=== PATIENT | female | born 1985 | race Caucasian/White ===

== ENCOUNTER 2016-08-17 03:10 | Observation (INO) | payer OTHER ==
[~2016-08-17] VITALS: Ht 170.2 cm; Wt 119.4 kg
[2016-08-17] VITALS (8 sets, daily range): BP systolic 118–137; BP diastolic 75–88; PULSE 67–106; TEMP 36.6–37.6; O2SAT 91–96; Ht 170.2 cm; Wt 119.4 kg
[2016-08-17] MEDS ORDERED: ONDANSETRON INJ 2 MG/ML 2 ML VIAL IV STA (03:27)
[2016-08-17] MEDS ORDERED: SODIUM CHLORIDE 0.9% 1000ML 1,000 ML IV STA (03:27)
[2016-08-17 04:14] LABS: BASO % 0.1 %; BASO ABS # 0.01 K/uL (0-0.2); COMPLETE YES; EOS % 3.2 %; HEMATOCRIT 33.5 % (37-47); IG% 0.4 %; LYMPH % 25.9 %; LYMPH ABS # 2.53 K/uL (1.2-3.4); MEAN CORPUSCULAR HEMOGLOBIN 29.4 pg (25-34); MEAN CORPUSCULAR HGB CONC 34.6 g/dl (32-36); MEAN PLATELET VOLUME 10.8 fL (7.4-10.4); MONO % 6.9 %; NEUT % 63.5 %; PLATELET COUNT 164 K/uL (130-400); RED BLOOD COUNT 3.94 M/uL (4.2-5.4); WHITE BLOOD COUNT 9.75 K/uL (4.8-10.8)
[2016-08-17 04:34] LABS: BUN/CREATININE RATIO 16.2 (10-20); CALCIUM 8.8 mg/dl (8.5-10.1); CREATININE 0.86 mg/dl (0.60-1.20); POTASSIUM 3.9 mmol/L (3.5-5.1)
[2016-08-17 04:36] LABS: ALB/GLOB RATIO 1.2 (0.9-2)
--- NOTE | 2016-08-17 04:58 | EMERGENCY ROOM VISIT NOTE ---
History First contact with patient: 03:20 Chief Complaint: ABDOMINAL PAIN Stated Complaint: PAIN UPPER RT ABD Nursing Triage Summary: see triage note History of Present Illness The patient is a 30 year old female who presents to the Emergency Room with complaints of right upper quadrant pain which began approximately 4 hours ago. The patient states that she has been told by her primary care provider that she is having gallbladder attacks. She states she has had 3 episodes of pain this week. The pain is located in the right upper abdomen and is associated with nausea. She has not had vomiting. She has been told before that she has gallstones. She states she has an appointment with Dr. Calles next week regarding this. She rates her discomfort an 8/10. She has not taken any medication for pain. She denies history of abdominal surgery. Review of Systems A complete 10-point Review of Systems was discussed with the patient, with pertinent positives and negatives listed in the History of Present Illness. All remaining Review of Systems questions can be considered negative unless otherwise specified. Past Medical/Surgical History Medical Problems: (1) Cholelithiasis and acute cholecystitis without obstruction Social History Smoking Status: Former Smoker Current/Historical Medications Scheduled PRN Oxycodone/Acetaminophen 5MG/325MG (Percocet 5MG/325MG), 1 TABLET PO Q4H PRN for Pain Allergies Coded Allergies: No Known Allergies (Unverified , 08/17/16) Physical Exam Vital Signs Date Time Temp Pulse Resp B/P Pulse Ox O2 Delivery O2 Flow Rate FiO2 08/17/16 08:40 70 18 109/67 100 Room Air 08/17/16 05:58 86 18 98 Room Air 08/17/16 03:16 36.7 61 18 125/77 98 Room Air Physical Exam VITALS: Vitals are noted on the nurse's note and reviewed by myself. Vital signs stable. GENERAL: This is a 30-year-old female, in no acute distress, nondiaphoretic, well-developed well-nourished. HEART: Regular rate and rhythm without murmurs gallops or rubs. LUNGS: Clear to auscultation bilaterally without wheezes, rales or rhonchi. No retractions or accessory muscle use. ABDOMEN: Positive bowel sounds x 4. Soft, with moderate right upper quadrant tenderness. Positive Metz sign. No guarding or rebound tenderness. NEURO: Patient was alert and oriented to person place and time. Medical Decision & Procedures ER Provider Diagnostic Interpretation: US RUQ: Multiple gallbladder stones. Some within the gallbladder neck or cystic duct. No gallbladder wall thickening. Small focus of fluid around the gallbladder. Positive sonographic Metz sign. No biliary dilatation. Findings raise the possibility of acute cholecystitis. Correlate and could consider nuclear medicine hepatobiliary scan and further indicated. Echogenic enlarged liver may represent fatty liver versus other hepatic infiltrative process. Radiologist: Berkley Ashley MD. Laboratory Results 08/17/16 04:01 Red Blood Count 3.94, Mean Corpuscular Volume 85.0, Mean Corpuscular Hemoglobin 29.4, Mean Corpuscular Hemoglobin Concent 34.6, Mean Platelet Volume 10.8, Neutrophils (%) (Auto) 63.5, Lymphocytes (%) (Auto) 25.9, Monocytes (%) (Auto) 6.9, Eosinophils (%) (Auto) 3.2, Basophils (%) (Auto) 0.1, Neutrophils # (Auto) 6.19, Lymphocytes # (Auto) 2.53, Monocytes # (Auto) 0.67, Eosinophils # (Auto) 0.31, Basophils # (Auto) 0.01 08/17/16 04:01 Test 08/17/16 04:01 08/17/16 05:30 White Blood Count 9.75 K/uL (4.8-10.8) Red Blood Count 3.94 M/uL (4.2-5.4) Hemoglobin 11.6 g/dL (12.0-16.0) Hematocrit 33.5 % (37-47) Mean Corpuscular Volume 85.0 fL (80-100) Mean Corpuscular Hemoglobin 29.4 pg (25-34) Mean Corpuscular Hemoglobin Concent 34.6 g/dl (32-36) Platelet Count 164 K/uL (130-400) Mean Platelet Volume 10.8 fL (7.4-10.4) Neutrophils (%) (Auto) 63.5 % Lymphocytes (%) (Auto) 25.9 % Monocytes (%) (Auto) 6.9 % Eosinophils (%) (Auto) 3.2 % Basophils (%) (Auto) 0.1 % Neutrophils # (Auto) 6.19 K/uL (1.4-6.5) Lymphocytes # (Auto) 2.53 K/uL (1.2-3.4) Monocytes # (Auto) 0.67 K/uL (0.11-0.59) Eosinophils # (Auto) 0.31 K/uL (0-0.5) Basophils # (Auto) 0.01 K/uL (0-0.2) RDW Standard Deviation 44.9 fL (36.4-46.3) RDW Coefficient of Variation 14.4 % (11.5-14.5) Immature Granulocyte % (Auto) 0.4 % Immature Granulocyte # (Auto) 0.04 K/uL (0.00-0.02) Anion Gap 11.0 mmol/L (3-11) Est Creatinine Clear Calc Drug Dose 130.3 ml/min Estimated GFR () 106.6 Estimated GFR (Non- 91.9 BUN/Creatinine Ratio 16.2 (10-20) Calcium Level 8.8 mg/dl (8.5-10.1) Total Bilirubin 0.5 mg/dl (0.2-1) Aspartate Amino Transf (AST/SGOT) 7 U/L (15-37) Alanine Aminotransferase (ALT/SGPT) 18 U/L (12-78) Alkaline Phosphatase 78 U/L (45-117) Total Protein 6.5 gm/dl (6.4-8.2) Albumin 3.6 gm/dl (3.4-5.0) Globulin 2.9 gm/dl (2.5-4.0) Albumin/Globulin Ratio 1.2 (0.9-2) Lipase 178 U/L (73-393) Urine Color YELLOW Urine Appearance CLEAR (CLEAR) Urine pH 5.0 (4.5-7.5) Urine Specific [place] 1.008 (1.000-1.030) Urine Protein NEG (NEG) Urine Glucose (UA) NEG (NEG) Urine Ketones NEG (NEG) Urine Occult Blood 1+ (NEG) Urine Nitrite NEG (NEG) Urine Bilirubin NEG (NEG) Urine Urobilinogen NEG (NEG) Urine Leukocyte Esterase NEG (NEG) Urine WBC (Auto) 1-5 /hpf (0-5) Urine RBC (Auto) 0-4 /hpf (0-4) Urine Hyaline Casts (Auto) 0 /lpf (0-5) Urine Epithelial Cells (Auto) >30 /lpf (0-5) Urine Bacteria (Auto) NEG (NEG) Urine Test NEG (NEG) Medications Administered Medications (Trade) Dose Ordered Sig/Destini Route Start Time Stop Time Status Last Admin Dose Admin Sodium Chloride (Nss 1000ml) 1,000 ml @ 999 mls/hr Q1H1M STAT IV 08/17/16 03:27 08/17/16 04:27 DC 08/17/16 03:54 999 MLS/HR Ondansetron HCl (Zofran Inj) 4 mg NOW STAT IV 08/17/16 03:27 08/17/16 03:29 DC 08/17/16 03:55 4 MG Heparin Sodium (Porcine) (Heparin Sod 5000u/ml(Porcine)) 5,000 unit STK-MED ONCE .ROUTE 08/17/16 09:03 08/17/16 09:06 DC 08/17/16 10:30 5,000 UNIT Cefazolin Sodium (Ancef Inj) 1,000 mg STK-MED ONCE .ROUTE 08/17/16 09:03 08/17/16 09:06 DC 08/17/16 10:30 1,000 MG Bupivacaine HCl (Marcaine 0.5% MPF Inj) 30 ml STK-MED ONCE .ROUTE 08/17/16 09:03 08/17/16 09:06 DC 08/17/16 11:20 30 ML Medical Decision Differential diagnosis includes cholecystitis, pancreatitis, appendicitis, colitis, gastroenteritis, pyelonephritis, among others. The patient was evaluated as above. Labs were drawn and IV access was obtained. Imaging studies were performed and read by radiology as above. The patient was medicated with 1 L NSS and 4 mg Zofran IV. She declined analgesics. The patient was reassessed multiple times during their stay in the emergency department and remained in stable condition. The patient is a 30-year-old female with known gallbladder disease who presents today complaining of worsening RUQ pain. Labs revealed no leukocytosis or increased LFTs. Urinalysis was not suggestive of infection. RUQ ultrasound was read by stat rad and did show evidence of acute cholecystitis. General surgery was consulted and Dr. Calles agreed to evaluate the patient. The patient's case was reviewed with Dr. Swann, ED attending physician, who agreed with my assessment and treatment plan. Impression Primary Impression: Acute cholecystitis Departure Information Prescriptions Oxycodone/Acetaminophen 5MG/325MG (PERCOCET 5MG/325MG) Tab 1 TABLET PO Q4H Y for Pain, #18 TAB Prov: Lola Queen ., PILO 08/17/16 Referrals Rell Jones D.O. (PCP) Patient Instructions My [facility]
[2016-08-17 06:27] LABS: URINE APPEARANCE CLEAR (CLEAR); URINE BILIRUBIN NEG (NEG); URINE COLOR YELLOW; URINE EPITHELIAL CELL AUTO >30 /lpf (0-5); URINE NITRITE NEG (NEG); URINE SPECIFIC GRAVITY 1.008 (1.000-1.030); UROBILINOGEN NEG (NEG); ZZUR CULT IF INDIC CLEAN CATCH NO
[2016-08-17 06:28] LABS: MANUAL MICROSCOPIC REQUIRED? NO; REVIEW REQ? NO
--- NOTE | 2016-08-17 07:32 | DIAGNOSTIC IMAGING REPORT ---
ABDOMINAL ULTRASOUND, RIGHT UPPER QUADRANT HISTORY: Right upper quadrant pain and nausea. History of gallstones.. COMPARISON: None. FINDINGS: Liver morphology is normal. Numerous gallstones are noted within the gallbladder including suspected stones within the gallbladder neck. A sonographic Metz sign was reported by the technologist. There was mild gallbladder wall thickening. No significant gallbladder wall thickening was noted. Trace pericholecystic fluid was noted. The pancreatic body was normal. The head and tail were obscured. There was no right hydronephrosis. IMPRESSION: 1. Cholelithiasis, positive sonographic Metz's sign and trace pericholecystic fluid. The findings may reflect acute cholecystitis and a hepatobiliary scan could be obtained. 2. No biliary ductal dilatation. 3. Partially obscured pancreas. Electronically signed by: Rick Fuller M.D. 08/17/2016 7:31 AM Dictated Date/Time: 08/17/2016 7:29 AM
[2016-08-17] MEDS ORDERED: FENTANYL CITRATE INJ 50 MCG/1 ML 2 ML VIAL ONE (08:43)
[2016-08-17] MEDS ORDERED: ROCURONIUM BROMIDE 10 MG/ML 5 ML VIAL ONE (08:43)
[2016-08-17] MEDS ORDERED: ONDANSETRON INJ 2 MG/ML 2 ML VIAL ONE (08:43)
[2016-08-17] MEDS ORDERED: DEXAMETHASONE SOD INJ 4 MG/ML VIAL ONE (08:43)
[2016-08-17] MEDS ORDERED: SUCCINYLCHOLINE CHLORIDE 20 MG/ML 10 ML VIAL IV ONE (08:43)
[2016-08-17] MEDS ORDERED: GLYCOPYRROLATE INJ 0.2 MG/ML VIAL ONE (08:43)
[2016-08-17] MEDS ORDERED: NEOSTIGMINE METHYLSULFATE 5 MG/5 ML SYR ONE (08:43)
[2016-08-17] MEDS ORDERED: LIDOCAINE HCL 2% 2 ML VIAL (20MG/ML) ONE (08:43)
[2016-08-17] MEDS ORDERED: MIDAZOLAM HCL 1 MG/ML 2ML VIAL ONE (08:43)
--- NOTE | 2016-08-17 08:49 | History and Physical ---
History & Physical Date & Time of Service: Aug 17, 2016 at 08:36 Chief Complaint: Pain Upper Rt Abd Primary Care Physician: Rell Jones D.O. History of Present Illness Source: patient 30 y/o female presented tot he ER with a complaint of pain in the RUQ. She has intermittent pain in the same area for about the last 3 months. Her first episode was while she was about 31 weeks . Her next episode was about 2 weeks and she has had increasing frequency of the discomfort since then. The pain begins in about the anterior axillary line on the right and then radiates anteriorly and toward her back. It will unusually last for about 1-3 hours andf then resolve. She hsa had discomfort 3 out of the last 4 nights but the pain last night was the most severe she has ever had. It did not resolve. She frequently has nausea with the pain but she does not vomit. She has not had a change in bowel or bladder habits. She denies dysuria and hematuria. She has not had jaundice, hepatitis or pancreatitis. She had an ultrasound the demonstrated cholelithiasis. Past Medical/Surgical History PMH: gestational diabetes PSH: D&C Social History Smoking Status: Former Smoker Smokeless Tobacco Use: No Alcohol Use: none Allergies Coded Allergies: No Known Allergies (Unverified , 08/17/16) Home Medications No Active Prescriptions or Reported Meds Review of Systems Constitutional: No fever Respiratory: No cough, No sputum Cardiovascular: No chest pain Abdomen: + problem reported (as per HPI) Genitourinary - Female: + problem reported (as per HPI) Endocrine: No fatigue Hematologic / Lymphatic: No abnormal bleeding/bruising Integumentary: No rash Physical Exam Vital Signs Date Time Temp Pulse Resp B/P Pulse Ox O2 Delivery O2 Flow Rate FiO2 08/17/16 05:58 86 18 98 Room Air 08/17/16 03:16 36.7 61 18 125/77 98 Room Air General Appearance: no apparent distress, + obese Head: normocephalic Neck: supple, no adenopathy Respiratory/Chest: chest non-tender, lungs clear Cardiovascular: regular rate, rhythm Abdomen/GI: normal bowel sounds, soft, + tenderness (Right subcostal area) Back: normal inspection Extremities/Musculoskelatal: normal inspection Skin: normal color Diagnostics Laboratory Results Results Past 24 Hours Test 08/17/16 04:01 08/17/16 05:30 Range/Units White Blood Count 9.75 4.8-10.8 K/uL Red Blood Count 3.94 4.2-5.4 M/uL Hemoglobin 11.6 12.0-16.0 g/dL Hematocrit 33.5 37-47 % Mean Corpuscular Volume 85.0 80-100 fL Mean Corpuscular Hemoglobin 29.4 25-34 pg Mean Corpuscular Hemoglobin Concent 34.6 32-36 g/dl Platelet Count 164 130-400 K/uL Mean Platelet Volume 10.8 7.4-10.4 fL Neutrophils (%) (Auto) 63.5 % Lymphocytes (%) (Auto) 25.9 % Monocytes (%) (Auto) 6.9 % Eosinophils (%) (Auto) 3.2 % Basophils (%) (Auto) 0.1 % Neutrophils # (Auto) 6.19 1.4-6.5 K/uL Lymphocytes # (Auto) 2.53 1.2-3.4 K/uL Monocytes # (Auto) 0.67 0.11-0.59 K/uL Eosinophils # (Auto) 0.31 0-0.5 K/uL Basophils # (Auto) 0.01 0-0.2 K/uL RDW Standard Deviation 44.9 36.4-46.3 fL RDW Coefficient of Variation 14.4 11.5-14.5 % Immature Granulocyte % (Auto) 0.4 % Immature Granulocyte # (Auto) 0.04 0.00-0.02 K/uL Sodium Level 143 136-145 mmol/L Potassium Level 3.9 3.5-5.1 mmol/L Chloride Level 108 98-107 mmol/L Carbon Dioxide Level 24 21-32 mmol/L Anion Gap 11.0 3-11 mmol/L Blood Urea Nitrogen 14 7-18 mg/dl Creatinine 0.86 0.60-1.20 mg/dl Est Creatinine Clear Calc Drug Dose 130.3 ml/min Estimated GFR () 106.6 Estimated GFR (Non- 91.9 BUN/Creatinine Ratio 16.2 10-20 Random Glucose 98 70-99 mg/dl Calcium Level 8.8 8.5-10.1 mg/dl Total Bilirubin 0.5 0.2-1 mg/dl Aspartate Amino Transf (AST/SGOT) 7 15-37 U/L Alanine Aminotransferase (ALT/SGPT) 18 12-78 U/L Alkaline Phosphatase 78 45-117 U/L Total Protein 6.5 6.4-8.2 gm/dl Albumin 3.6 3.4-5.0 gm/dl Globulin 2.9 2.5-4.0 gm/dl Albumin/Globulin Ratio 1.2 0.9-2 Lipase 178 73-393 U/L Urine Color YELLOW Urine Appearance CLEAR CLEAR Urine pH 5.0 4.5-7.5 Urine Specific [place] 1.008 1.000-1.030 Urine Protein NEG NEG Urine Glucose (UA) NEG NEG Urine Ketones NEG NEG Urine Occult Blood 1+ NEG Urine Nitrite NEG NEG Urine Bilirubin NEG NEG Urine Urobilinogen NEG NEG Urine Leukocyte Esterase NEG NEG Urine WBC (Auto) 1-5 0-5 /hpf Urine RBC (Auto) 0-4 0-4 /hpf Urine Hyaline Casts (Auto) 0 0-5 /lpf Urine Epithelial Cells (Auto) >30 0-5 /lpf Urine Bacteria (Auto) NEG NEG Urine Test NEG NEG Diagnostic Radiology ABDOMINAL ULTRASOUND, RIGHT UPPER QUADRANT HISTORY: Right upper quadrant pain and nausea. History of gallstones.. COMPARISON: None. FINDINGS: Liver morphology is normal. Numerous gallstones are noted within the gallbladder including suspected stones within the gallbladder neck. A sonographic Metz sign was reported by the technologist. There was mild gallbladder wall thickening. No significant gallbladder wall thickening was noted. Trace pericholecystic fluid was noted. The pancreatic body was normal. The head and tail were obscured. There was no right hydronephrosis. IMPRESSION: 1. Cholelithiasis, positive sonographic Metz's sign and trace pericholecystic fluid. The findings may reflect acute cholecystitis and a hepatobiliary scan could be obtained. 2. No biliary ductal dilatation. 3. Partially obscured pancreas. Impression Assessment and Plan This patient has a history of symptoms consistent with symptomatic cholelithiasis. Her ultrasound today shows the same with small amount of pericholecystic fluid. I recommended a laparoscopic cholecystectomy. I explained the possible need to convert to an open procedure. I explained the possible complications and answered her questions. She wished to proceed with surgery. She has signed a consent form.
[2016-08-17] MEDS ORDERED: BUPIVACAINE 0.5 % 5 MG/1 ML MPF 30ML VIAL ONE (09:03)
[2016-08-17] MEDS ORDERED: HEPARIN SOD (PORCINE) 5000 UNIT/ML 1 ML VIAL ONE (09:03)
[2016-08-17] MEDS ORDERED: CEFAZOLIN SOD 1 GM VIAL ONE (09:03)
[2016-08-17] MEDS ORDERED: ACETAMINOPHEN 1000 MG/100 ML IV IV ONE (09:39)
[2016-08-17] MEDS ORDERED: EpHEDrine SULFATE INJ 50 MG/ML AMP IV PRN (09:45)
[2016-08-17] MEDS ORDERED: ATROPINE SULFATE 0.1 MG/ML 5ML SYR IV PRN (09:45)
[2016-08-17] MEDS ORDERED: ONDANSETRON INJ 2 MG/ML 2 ML VIAL IV PRN ×2 (09:45→11:30)
[2016-08-17] MEDS ORDERED: FENTANYL CITRATE INJ 50 MCG/1 ML 2 ML VIAL IV PRN (09:45)
[2016-08-17] MEDS ORDERED: PROPOFOL IV EMULSION 10 MG/ML 20 ML VIAL IV ONE (10:19)
[2016-08-17] MEDS ORDERED: ESMOLOL HCL 10 MG/ML 10 ML VIAL ONE (10:19)
--- NOTE | 2016-08-17 11:25 | [facility] Post Operative Brief Note ---
Immediate Operative Summary Operative Date Aug 17, 2016. Pre-Operative Diagnosis colelithiasis, Acute Cholelithiasis Post-Operative Diagnosis cholelithiasis, Acute Cholelithiasis Procedure(s) Performed Laparoscopic Cholecystectomy, No Cholangiogram Surgeon Dr. Tulio Calles Striper Spray Gun Surgeon(s) None Estimated Blood Loss 20ml Findings See dictation Specimens Specimen A. Gallbladder (permanent) Drains None Anesthesia General Complication(s) None Disposition Recovery Room / PACU
[2016-08-17] MEDS ORDERED: MoRPHine SULFATE 4 MG/ML 1 ML CARP\\VIAL IV PRN (11:30)
[2016-08-17] MEDS ORDERED: HYDROmorphone INJ 2 MG/ML SYR/VIAL ONE (11:31)
[2016-08-17] MEDS ORDERED: OXYC-57 PO (11:43)
[2016-08-17] MEDS ORDERED: HYDROmorphone INJ 1 MG/ML SYR IV PRN (11:45)
--- NOTE | 2016-08-17 11:47 | Discharge Instructions ---
Discharge Instructions Admission Reason for Admission: Pain Upper Rt Abd Discharge Discharge Diagnosis / Problem: S/p laparoscopic cholecystectomy Discharge Goals Goal(s): Decrease discomfort Activity Recommendations Activity Limitations: as noted below No heavy lifting over 20 pounds for 2 weeks walking is encouraged to prevent blood clots No strenuous activity until cleared to do so No driving while taking narcotic pain medication or until you are pain free whichever comes first . Instructions / Follow-Up Instructions / Follow-Up Follow-up in surgical office in 2 weeks Please call [phone] to make an appointment You may remove dressing in 24 hours and shower do not submerge incision underwater for 2 weeks IF you develop fever, increasing abdominal pain, nausea, vomiting, or incisional pain/redness/drainage please call office or go to emergency room if symptoms severe for further evaluation. Current Hospital Diet Patient's current hospital diet: Regular Diet Discharge Diet Recommended Diet: Regular Diet Procedures Procedures Performed: Laparoscopic Cholecystectomy, No Cholangiogram Pending Studies Studies pending at discharge: no Medical Emergencies . Who to Call and When: Medical Emergencies: If at any time you feel your situation is an emergency, please call 911 immediately. . Non-Emergent Contact Non-Emergency issues call your: Primary Care Provider, Surgeon Call Non-Emergent contact if: temperature is above 101.5, your pain is not controlled, your pain is worsening, wound has increased drainage, wound has increased redness, wound has increased pain . "Provider Documentation" section prepared by Lola Queen. VTE Core Measure Inpt VTE Proph given/why not?: SCD's [place] Drug Monitoring Program Search Results: patient reviewed within database, no issues identified
--- NOTE | 2016-08-17 12:03 | OPERATIVE REPORT ---
DATE OF OPERATION: 08/17/2016 PREOPERATIVE DIAGNOSES: Cholelithiasis, acute cholecystitis. POSTOPERATIVE DIAGNOSIS: Same. PROCEDURE: Laparoscopic cholecystectomy. SURGEON: Dr. Calles. FINDINGS: The gallbladder was mildly dilated. The cystic duct was mildly dilated. There was white bile within the gallbladder. There was only very mild thickening in the wall the gallbladder, but there was a lot of edema in the tissues from the gallbladder and surrounding the cystic duct and cystic artery area. The liver was of normal size and contour. TECHNIQUE: The patient was given a general anesthetic and the area was prepped and draped in usual sterile fashion. Transverse incision was made below the umbilicus, carried down through the subcutaneous tissue to the fascia which was grasped with 2 Rylie clamps and incised between. The peritoneum was identified, incised, and the introducer was placed bluntly. The abdomen was then insufflated to a pressure of 15 mmHg with carbon dioxide. The upper midline, midclavicular and anterior axillary introducers were placed under direct vision through small skin incisions. Traction was placed on the gallbladder. The cystic duct lymph node was identified. The peritoneum on the lateral side of the infundibulum was opened and peeled down towards the common bile duct and the infundibulum was dissected away from the liver on that side with the benefit of some hydrodissection. Working then towards the anterior surface of the infundibulum, the gallbladder wall was identified, a plane was established between the peritoneum and the gallbladder. It was peeled down towards the common bile duct. The cystic duct lymph node was not included with the gallbladder as it was left in its anatomic position as it was down towards the more inferior portion of the cystic duct. I then opened the triangle of Calot and dissected some of the infundibulum away from the liver on that side. A small hole was created in the cystic artery which was lying along the anteromedial side of the cystic duct. This was easily and clipped proximally and distally and the bleeding was then controlled with ease. Further dissection was then carried out behind the cystic duct and the cystic duct gallbladder junction was identified. Two clips were placed on the proximal cystic duct, one near the junction of the gallbladder was divided. Further dissection was carried out posterior to there and then the gallbladder was able to be peeled off the liver bed using electrocautery. It was placed into an Endobag and brought out through the upper midline incision where I had to be opened on the outside, the stones had been removed in order to extract the gallbladder within the bag, but that was accomplished. That introducer was replaced and the subdiaphragmatic and subhepatic spaces were irrigated and the irrigation was removed. The liver edge was elevated and the gallbladder bed of the liver was inspected. There was no bleeding. Further irrigation was performed and removed until the return was clear. The clips were inspected and were intact. The gas was allowed to escape and removed using suction. The introducers were removed and the fascia of the umbilical introducer site was closed with interrupted 0 Vicryl. The skin of all the incisions was closed with 4-0 Monocryl in either an interrupted or running subcuticular fashion. The skin was anesthetized with 0.5% Marcaine. The skin was cleansed, dried, benzoin placed. Steri-Strips applied. The estimated blood loss was 20 mL. Sponge, needle and instrument counts were correct prior to closure. The patient tolerated the surgical procedure without complication and was transferred to recovery. I attest to the content of the Intraoperative Record and any orders documented therein. Any exceptio ns are noted below.
--- NOTE | 2016-08-17 12:19 | Anesthesiology Progress Note ---
Anesthesia Post Op Note Date & Time Aug 17, 2016 at 12:19 Vital Signs Pain Intensity: 2 Vital Signs Past 12 Hours Date Time Temp Pulse Resp B/P Pulse Ox O2 Delivery O2 Flow Rate FiO2 08/17/16 12:10 36.7 74 16 140/72 95 Nasal Cannula 2 08/17/16 12:00 78 16 133/73 96 Nasal Cannula 2 08/17/16 11:50 76 16 141/78 98 Mask 10 08/17/16 11:40 76 24 140/82 99 Mask 10 08/17/16 11:34 37.4 76 22 128/75 97 Mask 10 08/17/16 08:40 70 18 109/67 100 Room Air 08/17/16 05:58 86 18 98 Room Air 08/17/16 03:16 36.7 61 18 125/77 98 Room Air Notes Mental Status: alert / awake / arousable, participated in evaluation Pt Amnestic to Procedure: Yes Nausea / Vomiting: adequately controlled Pain: adequately controlled Airway Patency, RR, SpO2: stable & adequate BP & HR: stable & adequate Hydration State: stable & adequate Anesthetic Complications: no major complications apparent
[2016-08-17] MEDS ORDERED: IV FLUIDS COMPLETED PRN (12:30)
[2016-08-17] MEDS: D5W AND 1/2NSS + 20MEQ KCL 1,000 ML IV SCH ×2 (13:36→23:34)
[2016-08-17] MEDS: OXYCODONE/ACETAMINOPHEN 5-325 TAB PO PRN (18:56)
[2016-08-18 03:06] VITALS: BP 127/80; PULSE 92; TEMP 36.9; O2SAT 92
[2016-08-18] MEDS: OXYCODONE/ACETAMINOPHEN 5-325 TAB PO PRN ×2 (06:00→09:53)
--- NOTE | 2016-08-18 06:21 | Surgery Progress Note ---
Surgery Progress Note Date of Service Aug 18, 2016. Subjective + feeling well, No nausea, No vomiting awake , alert Objective Vital Signs: Date Time Temp Pulse Resp B/P Pulse Ox O2 Delivery O2 Flow Rate FiO2 08/18/16 03:06 36.9 92 14 127/80 92 Room Air 08/17/16 23:30 Room Air 08/17/16 23:04 37.0 08/17/16 23:01 37.6 106 16 135/83 91 Room Air 08/17/16 20:07 37.4 103 16 127/75 95 Room Air 08/17/16 16:05 Room Air 08/17/16 15:33 37.0 67 16 129/81 95 Room Air 08/17/16 14:32 36.6 67 16 137/85 96 2.0 08/17/16 13:37 36.8 85 19 134/88 96 Nasal Cannula 2.0 08/17/16 13:05 36.7 82 19 128/77 94 Nasal Cannula 2.0 08/17/16 12:35 37.0 74 18 118/76 93 Nasal Cannula 2.0 08/17/16 12:35 93 Nasal Cannula 2.0 08/17/16 12:10 36.7 74 16 140/72 95 Nasal Cannula 2 08/17/16 12:00 78 16 133/73 96 Nasal Cannula 2 08/17/16 11:50 76 16 141/78 98 Mask 10 08/17/16 11:40 76 24 140/82 99 Mask 10 08/17/16 11:34 37.4 76 22 128/75 97 Mask 10 08/17/16 08:40 70 18 109/67 100 Room Air General Appearance: no apparent distress Respiratory/Chest: no respiratory distress Abdomen: soft Incision(s): intact Assessment & Plan 08/18/16- s/p lap estephanie- doing well- will d/c home today f/u with Dr Calles
[2016-08-18 07:00] VITALS: BP 136/88; PULSE 59; TEMP 36.7; O2SAT 98
[2016-08-18 09:10] VITALS: BP 136/88; PULSE 59; TEMP 36.7; O2SAT 98
--- NOTE | 2016-08-27 11:43 | Discharge Summary ---
Discharge Summary Dates Admission Date / Time: Aug 17, 2016 at 11:28 Discharge Date: Aug 18, 2016 Dispostion / Condition Discharge Disposition: Home Condition at Discharge: Good Principal Diagnosis (1) Cholelithiasis and acute cholecystitis without obstruction Consultations / Procedures Consultations: NONE Procedures: Laparoscopic Cholecystectomy Pending Studies / Follow-Up None Medication Reconciliation New Medications: Oxycodone/Acetaminophen 5MG/325MG (Percocet 5MG/325MG) Tab 1 TABLET PO Q4H PRN for Pain, #18 TAB Admission HPI Per the Admitting provider: 30 y/o female presented to the ER with a complaint of pain in the RUQ. She had intermittent pain in the same area for about the last 3 months. Her first episode was while she was about 31 weeks . Her next episode was about 2 weeks and she has had increasing frequency of the discomfort since then. The pain begins in about the anterior axillary line on the right and then radiates anteriorly and toward her back. It will unusually last for about 1-3 hours and then resolves. She has had discomfort 3 out of the last 4 nights but the pain last night was the most severe she has ever had. It did not resolve. She frequently has nausea with the pain but she does not vomit. She has not had a change in bowel or bladder habits. She denies dysuria and hematuria. She has not had jaundice, hepatitis or pancreatitis. She had an ultrasound the demonstrated cholelithiasis. Admission Exam Per the Admitting provider: General Appearance: no apparent distress, + obese Head: normocephalic Neck: supple, no adenopathy Respiratory/Chest: chest non-tender, lungs clear Cardiovascular: regular rate, rhythm Abdomen/GI: normal bowel sounds, soft, + tenderness Back: normal inspection Extremities/Musculoskelatal: normal inspection Skin: normal color Hospital Course (1) Cholelithiasis and acute cholecystitis without obstruction Patient underwent Laparoscopic Cholecystectomy on day of admission. She tolerated procedure well and was transferred to [facility]/Surg floor post-op in stable condition. She was started on IV morphine and po Percocet as needed for pain. She also was started on regular diet and IV fluids. She stayed one night and was discharged on POD # 1 in stable condition. Pain was controlled with oral pain medication and she was urinating without difficulty. Overall hospital and post-operative course was uneventful. Discharge Instructions as given to patient Copies To Primary Care Provider: Rell Jones D.O..
== END 2016-08-18 09:55 | disposition home or self-care (01) ==
LOC: ENRESERVTM → ENRESERVDT → C.EDB 03:11 → C.MSW 11:28
PROVIDERS: ADMIT Surgery; ATTEND Surgery
DX: K80.00 Calculus of gallbladder with acute cholecystitis without obstruction (principal); Z87.891 Personal history of nicotine dependence

== ENCOUNTER 2017-03-13 13:53 | Outpatient (CLI) | payer OTHER ==
[2017-03-13 17:00] LABS: MANUAL MICROSCOPIC REQUIRED? NO; REVIEW REQ? YES; URINE APPEARANCE CLOUDY (CLEAR); URINE BILIRUBIN NEG (NEG); URINE COLOR YELLOW; URINE EPITHELIAL CELL AUTO >30 /lpf (0-5); URINE NITRITE NEG (NEG); URINE PH 5.5 (4.5-7.5); URINE SPECIFIC GRAVITY 1.026 (1.000-1.030); UROBILINOGEN NEG (NEG); ZZUR CULT IF INDIC CLEAN CATCH YES
--- NOTE | 2017-03-15 13:04 | EDITING REQUIRED CODING QUERY ---
DIAGNOSIS NEEDED To promote full compliance with coding requirements relating to patient care, physician participation is requested in all cases of remote medical coder uncertainty. Please assist us with the question(s) below: Coding Question: The patient received care in labor and delivery on 03/13/17 as noted within the record. Please document the diagnosis that is being addressed by the medication/treatment. Provider Response: DIAGNOSIS: vaginal spotting in WEEKS OF GESTATION: 18 Thank you for your assistance, Juliana Duron - Deputy General Counsel
== END 2017-03-13 14:20 | disposition home or self-care (01) ==
LOC: C.OPB 13:53 → C.LD 13:55 → C.OPB 14:20
PROVIDERS: ATTEND Obstetrics & Gynecology
DX: O26.852 Spotting complicating pregnancy, second trimester (principal); Z3A.18 18 weeks gestation of pregnancy

== ENCOUNTER 2017-10-23 14:08 | Inpatient (IN) | payer OTHER ==
[~2017-10-23] VITALS: Ht 170.2 cm; Wt 125.0 kg
[2017-10-23 15:30] VITALS: BP 140/81; PULSE 64; TEMP 36.5; O2SAT 94
[2017-10-23] MEDS ORDERED: ONDANSETRON INJ 2 MG/ML 2 ML VIAL IV PRN ×2 (15:45)
[2017-10-23] MEDS ORDERED: HYDROmorphone INJ 0.5 MG/0.5 ML SYR IV PRN (15:45)
[2017-10-23 15:58] LABS: HEMATOCRIT 36.6 % (37-47); HEMOGLOBIN 12.7 g/dL (12.0-16.0); MEAN CELL VOLUME 79.4 fL (80-100); MEAN CORPUSCULAR HEMOGLOBIN 27.5 pg (25-34); MEAN PLATELET VOLUME 9.7 fL (7.4-10.4); PLATELET COUNT 154 K/uL (130-400); RED CELL DISTRIBUTION WIDTH CV 14.2 % (11.5-14.5); RED CELL DISTRIBUTION WIDTH SD 39.8 fL (36.4-46.3); WHITE BLOOD COUNT 5.47 K/uL (4.8-10.8)
[2017-10-23] MEDS: PATIENT'S HEIGHT AND/OR WEIGHT NEEDED SCH ×3 (16:00→20:00)
[2017-10-23 16:01] LABS: MEAN CORPUSCULAR HGB CONC 34.7 g/dl (32-36)
[2017-10-23 16:09] LABS: INR 0.9 (0.9-1.1)
[2017-10-23 16:25] LABS: ALBUMIN 3.8 gm/dl (3.4-5.0); ALKALINE PHOSPHATASE 189 U/L (45-117); ALT/SGPT 441 U/L (12-78); AST/SGOT 247 U/L (15-37); BLOOD UREA NITROGEN 8 mg/dl (7-18); CALCIUM 8.9 mg/dl (8.5-10.1); CARBON DIOXIDE 22 mmol/L (21-32); CREATININE 0.72 mg/dl (0.60-1.20); GLUCOSE 89 mg/dl (70-99); POTASSIUM 3.7 mmol/L (3.5-5.1); SODIUM 140 mmol/L (136-145)
--- NOTE | 2017-10-23 16:40 | DIAGNOSTIC IMAGING REPORT ---
MRCP CLINICAL HISTORY: Obstructive jaundice status post cholecystectomy. Advise for choledocholithiasis. COMPARISON STUDY: Biliary ultrasound dated 08/17/2016 FINDINGS: The spleen is enlarged measuring 15.7 cm. The gallbladder surgically absent. There is no intra or extrahepatic biliary ductal dilatation. The common bile duct measures 3.5 mm. There are no filling defects to indicate common bile duct calculi. There is a long cystic duct remnant. There is no pancreatic ductal dilatation. IMPRESSION: 1. No evidence of biliary or pancreatic ductal dilatation 2. No filling defects to indicate common bile duct calculi 3. Long cystic duct remnant 4. Surgically absent gallbladder 5. Splenomegaly Electronically signed by: Warner Hawk M.D. 10/23/2017 4:38 PM Dictated Date/Time: 10/23/2017 4:32 PM
[2017-10-23] MEDS: LACTATED RINGER'S 1000ML 1,000 ML IV SCH (16:50)
[2017-10-23 16:53] VITALS: BP 140/81; PULSE 64; TEMP 36.5; Ht 170.2 cm; Wt 125.0 kg
--- NOTE | 2017-10-23 17:00 | History and Physical ---
History & Physical Date & Time of Service: October 23, 2017 at 16:57 Chief Complaint: Pancreatitis,Gallstones Primary Care Physician: Rell Jones D.O. History of Present Illness Source: patient, clinic records, hospital records Patient is a 31yo F who presents directly from [facility] ED with RUQ pain. Was previously admitted to [facility] in August 2016 for cholelithiasis and had a laparoscopic cholecystectomy by Dr. Calles. Has not had any issue with abdominal pain since then, until she woke up with RUQ abdominal pain 2 nights ago, which resolved spontaneously. Patient woke up this morning with sharp, stabbing, 9/10 RUQ pain with associated nausea. Was in too much pain to lift 2 month old. Endorses an episode of diarrhea this morning. Called PCP and was instructed to go to ED for further evaluation. In [place], patient's Tbili was 3.07, Dbili of 1.66, AST of 293, ALT of 446, and alk phos of 164. RUQ ultrasound was unremarkable. CT abd/pelvis was not performed. Patient was transferred here for GI support. Currently endorses 3/10 pain. Denies fever, chills, lightheadedness, headache, visual changes, chest pain, SOB, vomiting or constipation. Has not eaten since last evening. Past Medical/Surgical History Medical Problems: (1) Cholelithiasis and acute cholecystitis without obstruction Social History Smoking Status: Former Smoker Alcohol Use: none Marital Status: in relationship Housing status: lives with family Allergies Coded Allergies: No Known Allergies (Unverified , 08/17/16) Review of Systems Ten systems reviewed and negative except as noted in the HPI. Physical Exam Vital Signs Date Time Temp Pulse Resp B/P (MAP) Pulse Ox O2 Delivery O2 Flow Rate FiO2 10/23/17 15:30 36.5 64 18 140/81 (100) 94 Room Air General Appearance: WD/WN, no apparent distress Head: normocephalic, atraumatic Eyes: normal inspection, sclerae normal ENT: normal ENT inspection, hearing grossly normal, pharynx normal (dry mucous membranes ) Neck: supple, thyroid normal, trachea midline Respiratory/Chest: chest non-tender, lungs clear, normal breath sounds, no respiratory distress, no accessory muscle use Cardiovascular: regular rate, rhythm, no murmur, normal peripheral pulses Abdomen/GI: normal bowel sounds, soft, no organomegaly, + tenderness (Mild TTP of RUQ, no guarding ) Back: normal inspection Extremities/Musculoskelatal: normal inspection, no calf tenderness, no pedal edema Neurologic/Psych: no motor/sensory deficits, alert, normal mood/affect, oriented x 3 Skin: normal color, warm/dry Diagnostics Laboratory Results Results Past 24 Hours Test 10/23/17 15:37 Range/Units White Blood Count 5.47 4.8-10.8 K/uL Red Blood Count 4.61 4.2-5.4 M/uL Hemoglobin 12.7 12.0-16.0 g/dL Hematocrit 36.6 37-47 % Mean Corpuscular Volume 79.4 80-100 fL Mean Corpuscular Hemoglobin 27.5 25-34 pg Mean Corpuscular Hemoglobin Concent 34.7 32-36 g/dl RDW Standard Deviation 39.8 36.4-46.3 fL RDW Coefficient of Variation 14.2 11.5-14.5 % Platelet Count 154 130-400 K/uL Mean Platelet Volume 9.7 7.4-10.4 fL Prothrombin Time 9.6 9.0-12.0 SECONDS Prothromb Time International Ratio 0.9 0.9-1.1 Sodium Level 140 136-145 mmol/L Potassium Level 3.7 3.5-5.1 mmol/L Chloride Level 110 98-107 mmol/L Carbon Dioxide Level 22 21-32 mmol/L Anion Gap 9.0 3-11 mmol/L Blood Urea Nitrogen 8 7-18 mg/dl Creatinine 0.72 0.60-1.20 mg/dl Estimated GFR () 131.2 Estimated GFR (Non- 113.2 BUN/Creatinine Ratio 10.7 10-20 Random Glucose 89 70-99 mg/dl Calcium Level 8.9 8.5-10.1 mg/dl Total Bilirubin 3.2 0.2-1 mg/dl Direct Bilirubin 2.2 0-0.2 mg/dl Aspartate Amino Transf (AST/SGOT) 247 15-37 U/L Alanine Aminotransferase (ALT/SGPT) 441 12-78 U/L Alkaline Phosphatase 189 45-117 U/L Total Protein 7.0 6.4-8.2 gm/dl Albumin 3.8 3.4-5.0 gm/dl Globulin 3.2 2.5-4.0 gm/dl Albumin/Globulin Ratio 1.2 0.9-2 Diagnostic Radiology MRCP: IMPRESSION: 1. No evidence of biliary or pancreatic ductal dilatation 2. No filling defects to indicate common bile duct calculi 3. Long cystic duct remnant 4. Surgically absent gallbladder 5. Splenomegaly Impression Assessment and Plan Patient is a 31yo F who presents directly from [facility] ED with RUQ pain and was found to have abnormal liver lab work. Elevated LFTs: -Direct admit from [facility] -Concern for choledocholithiasis -RUQ pain, nausea -Tbili: 3.2, Dbili: 2.2, AST: 247, ALT: 441, Alk phos: 189 -Lipase WNL -RUQ ultrasound unremarkable -CT abd/pelvis pending -MRCP with no evidence of biliary or pancreatic ductal dilatation -Keep NPO -LR @ 125cc/hr -GI consulted DVT Ppx: SCDs Code status: FULL PCP: Karen Dispo: Admitted to med/surg. Plan to return home once medically stable. Patient seen in collaboration with Dr. Ritter. Please see addendum. ATTENDING ADDENDUM: This is a 31-year-old female status post cholecystectomy in August 2016 was presented to [place] ER today with sudden onset of right upper quadrant pain , associated with nausea vomiting chills Found to have abnormal LFTs Patient was asked transfer to [facility] as a [facility] does not have any GI coverage Patient will be admitted to medical floor Ordered for MRCP to assess for choledocholithiasis Keep n.p.o. till GI evaluation IV fluids, pain control Promise Ritter MD Resuscitation Status VTE Prophylaxis Will order VTE Prophylaxis: Yes
[2017-10-23 17:17] LABS: LIPASE 180 U/L (73-393)
[2017-10-23] MEDS ORDERED: OPTIRAY 320 IV PRN (21:30)
--- NOTE | 2017-10-23 21:31 | DIAGNOSTIC IMAGING REPORT ---
ABD/PELVIS IV CONTRAST ONLY CLINICAL HISTORY: 31 years-old Female presenting with Elevated LFTs, pancreatitis, gallstones. TECHNIQUE: Multidetector CT of the abdomen and pelvis was performed after the administration of intravenous contrast. IV contrast: 116 mL of Optiray 320. A dose lowering technique was used consistent with the principles of ALARA (as low as reasonably achievable). COMPARISON: MRCP performed earlier the same day. CT DOSE (mGy.cm): The estimated cumulative dose is 1516.19 mGy.cm. FINDINGS: Coater Smoking Pipe topogram: Cholecystectomy clips. Lung bases: Minimal basilar opacities, likely atelectasis. Normal heart size. No pericardial or pleural effusion. Liver: Normal morphology. Density suggestive of hepatic steatosis. No focal lesion. Patent hepatic vasculature. Biliary: Mild biliary ductal prominence likely a reservoir effect in the post cholecystectomy state. Gallbladder surgically absent. Pancreas: Normal. Spleen: Enlarged, measuring 17.7 cm in sagittal dimension. Adrenal glands: Normal. Kidneys and ureters: Normal. No hydronephrosis. Bladder: Circumferential bladder wall thickening. Pelvic organs: Uterus and ovaries normal. Bowel: Normal. No bowel obstruction. Peritoneal cavity: No free fluid or intraperitoneal gas. Lymph nodes: No enlarged lymph nodes in the abdomen or pelvis. Vasculature: Aorta and IVC patent and normal in caliber. Abdominal wall: Nonspecific subcutaneous edema in the lumbar region. Musculoskeletal: Normal. IMPRESSION: 1. No acute intra-abdominal pathology. No CT evidence of pancreatitis, which does not exclude the diagnosis. 2. Postsurgical changes of cholecystectomy. 3. Hepatic steatosis. Correlate with liver function tests to exclude steatohepatitis as a cause for abdominal pain. 4. Splenomegaly. Electronically signed by: Ant Saenz M.D. 10/23/2017 9:30 PM Dictated Date/Time: 10/23/2017 9:22 PM
[2017-10-23] MEDS: KETOROLAC TROMETHAMINE 15 MG/ML VIAL IV PRN (23:21)
[2017-10-23 23:57] VITALS: BP 139/81; PULSE 65; TEMP 36.5; O2SAT 93
[2017-10-24] MEDS: LACTATED RINGER'S 1000ML 1,000 ML IV SCH ×4 (01:06→23:31)
[2017-10-24 06:59] VITALS: BP 143/80; PULSE 72; TEMP 37; O2SAT 97
[2017-10-24 07:30] LABS: HEMATOCRIT 36.3 % (37-47); HEMOGLOBIN 12.4 g/dL (12.0-16.0); MEAN CORPUSCULAR HEMOGLOBIN 27.3 pg (25-34); MEAN CORPUSCULAR HGB CONC 34.2 g/dl (32-36); MEAN PLATELET VOLUME 9.7 fL (7.4-10.4); PLATELET COUNT 145 K/uL (130-400); RED CELL DISTRIBUTION WIDTH CV 14.2 % (11.5-14.5); RED CELL DISTRIBUTION WIDTH SD 40.9 fL (36.4-46.3); WHITE BLOOD COUNT 4.64 K/uL (4.8-10.8)
[2017-10-24 08:00] LABS: ALBUMIN 3.4 gm/dl (3.4-5.0); CALCIUM 8.9 mg/dl (8.5-10.1); CREATININE 0.76 mg/dl (0.60-1.20); POTASSIUM 3.8 mmol/L (3.5-5.1)
[2017-10-24 08:03] LABS: TOTAL PROTEIN 6.7 gm/dl (6.4-8.2)
[2017-10-24] MEDS: PANTOprazole INJ 40 MG in SYRINGE 0 ML IV SCH (08:12)
--- NOTE | 2017-10-24 12:54 | Gastrointestinal Consultation ---
Gastrointestinal Consultation Date of Consultation: October 24, 2017 Attending Physician: Dr. Burris Consulting Physician: Dr. Rausch Reason for Consultation: Obstructive Jaundice History of Present Illness Patient is a 31 year old female patient with a hx of obesity, S/P cholecystectomy approx one year ago who has experienced intermitted RUQ and epigastric pain which is deep, twisting, radiating to the back, occurring after eating high fat food and lasting intensely for 1-2 hours then low grade pain for another 10 - 12 hrs. This has been occurring since October 11 and most recently, yesterday morning when it woke her from sleep. She presented to the [place] ED yesterday. When LFTs were found to be elevated, she was transferred to [facility]. T Bili 3.2 ->3.4, D Bili 2.2 -> 2.4, AST 247->152, ALT 441- >347, Alk Phos 189->188. She denies any fevers, chills, sweats, sore throat, nausea, vomiting but has had some diarrhea with the episodes of pain. US in [place], CT and MRCP here all without any ductal dilation or evidence of stones. Labs on arrival with elevated LFTs, no leukocytosis. She is seen and examined today while she is awake, alert, oriented and reports low grade pain. Past Medical/Surgical History Past Medical History: 1. Obesity 2. Gallbadder disease Past Surgical History: 1. Lap Cholecystectomy 2. D&C Social History Smoking Status: Current Every Day Smoker Alcohol Use: none Drug Use: none Marital Status: , in relationship Housing Status: lives with family Occupation Status: employed Allergies Coded Allergies: No Known Allergies (Unverified , 08/17/16) Current Medications Home Meds and Scripts Medications Dose Route/Sig Max Daily Dose Days Date Category Review of Systems Constitutional: No fever, No chills, No sweats, No weight loss, No weakness Eyes: No eye pain, No redness ENT: No sore throat, No trouble swallowing, No pain on swallowing Respiratory: No cough, No wheezing, No shortness of breath, No dyspnea on exertion Cardiac: No chest pain, No edema, No palpitations Abdomen: + see HPI, + pain, + nausea, + diarrhea Neuro: No memory loss, No weakness, No numbness/tingling, No vertigo, No balance problems Psych: No depression symptoms, No anxiety, No insomnia Heme: No abnormal bleeding/bruising, No night sweats Endo: No excessive thirst, No excessive urination Skin: No rash, No itch, No new/changing skin lesions, No jaundice Physical Exam Date Time Temp Pulse Resp B/P (MAP) Pulse Ox O2 Delivery O2 Flow Rate FiO2 10/24/17 11:09 Room Air 10/24/17 06:59 37.0 72 18 143/80 (101) 97 Room Air 10/24/17 02:05 Room Air 10/23/17 23:57 36.5 65 17 139/81 (100) 93 Room Air 10/23/17 16:53 36.5 64 18 140/81 Room Air 10/23/17 15:30 36.5 64 18 140/81 (100) 94 Room Air General Appearance: + mild distress Eyes: normal inspection, EOMI ENT: pharynx normal Neck: supple, no adenopathy, thyroid normal Respiratory/Chest: chest non-tender, lungs clear, normal breath sounds, no accessory muscle use Cardiovascular: regular rate, rhythm, no JVD, no murmur Abdomen: normal bowel sounds, soft, no organomegaly, + tenderness (RUQ tenderness) Extremities: normal inspection, no pedal edema, normal capillary refill Neurologic/Psych: alert, normal mood/affect, oriented x 3 Skin: normal color, no jaundice, warm/dry, no rash, + jaundice (mild) Laboratory Results Last 24 Hours Test 10/23/17 15:37 10/24/17 06:53 10/24/17 06:59 10/24/17 08:41 White Blood Count 5.47 K/uL 4.64 K/uL Red Blood Count 4.61 M/uL 4.54 M/uL Hemoglobin 12.7 g/dL 12.4 g/dL Hematocrit 36.6 % 36.3 % Mean Corpuscular Volume 79.4 fL 80.0 fL Mean Corpuscular Hemoglobin 27.5 pg 27.3 pg Mean Corpuscular Hemoglobin Concent 34.7 g/dl 34.2 g/dl RDW Standard Deviation 39.8 fL 40.9 fL RDW Coefficient of Variation 14.2 % 14.2 % Platelet Count 154 K/uL 145 K/uL Mean Platelet Volume 9.7 fL 9.7 fL Prothrombin Time 9.6 SECONDS Prothromb Time International Ratio 0.9 Sodium Level 140 mmol/L 140 mmol/L Potassium Level 3.7 mmol/L 3.8 mmol/L Chloride Level 110 mmol/L 109 mmol/L Carbon Dioxide Level 22 mmol/L 22 mmol/L Anion Gap 9.0 mmol/L 9.0 mmol/L Blood Urea Nitrogen 8 mg/dl 9 mg/dl Creatinine 0.72 mg/dl 0.76 mg/dl Estimated GFR () 131.2 122.9 Estimated GFR (Non- 113.2 106.0 BUN/Creatinine Ratio 10.7 11.7 Random Glucose 89 mg/dl 94 mg/dl Calcium Level 8.9 mg/dl 8.9 mg/dl Total Bilirubin 3.2 mg/dl 3.4 mg/dl Direct Bilirubin 2.2 mg/dl 2.4 mg/dl Aspartate Amino Transf (AST/SGOT) 247 U/L 152 U/L Alanine Aminotransferase (ALT/SGPT) 441 U/L 347 U/L Alkaline Phosphatase 189 U/L 188 U/L Total Protein 7.0 gm/dl 6.7 gm/dl Albumin 3.8 gm/dl 3.4 gm/dl Globulin 3.2 gm/dl 3.3 gm/dl Albumin/Globulin Ratio 1.2 1.0 Lipase 180 U/L Est Creatinine Clear Calc Drug Dose 150.0 ml/min Hepatitis C Antibody NEG Monoscreen NEG Impression Patient is a 31 year old female with biliary colic, elevated LFTs but no evidence of choledocholithiasis on US, CT, MRCP. Still, most likely her pain represents choledocholithiasis vs. SOD vs. less likely IBS. Plan 1. Check viral serologies and MARTHA. 2. Recheck LFTs tomorrow with lipase. 3. EUS tomorrow. If choledocholithiasis is present on EUS then can possibly go forward with ERCP. 4. Clear liquids today. N.p.o. after midnight. Late entry: Patient was seen and examined with MAIA Lawrence whose note reflects our findings and plan. EUS and if needed ERCP planned for Saturday.
[2017-10-24 15:31] VITALS: BP 125/81; PULSE 70; TEMP 36.6; O2SAT 97
[2017-10-24 23:54] VITALS: BP 116/77; PULSE 63; TEMP 36.4; O2SAT 96
--- NOTE | 2017-10-25 05:08 | Progress Note ---
Medicine Progress Note Date & Time of Visit: October 24, 2017 at 1400. Subjective 31 yo F s/p cholecystectomy in the past who presents as a direct transfer from [facility] ER for possible ERCP. She presented with biliary colic and nausea and was found to have elevated aminotransferases. She reports feeling somewhat improved this morning. She denies any vomiting and states that her pain is provoked by foods, specifically fatty foods such as burgers. These attacks have been going on now for the past 2 weeks. Of note, she just gave two months ago and is actively . She denies any issues with the or delivery. Objective Last 8 Hrs Date Time Temp Pulse Resp B/P (MAP) Pulse Ox O2 Delivery O2 Flow Rate FiO2 10/24/17 16:00 Room Air 10/24/17 15:31 36.6 70 20 125/81 (96) 97 Room Air 10/24/17 11:09 Room Air Physical Exam: GEN: WNWD, in no acute distress, alert and appropriate HEENT: NC/AT, normal sclerae, MMM CARDIO: reg rate, S1/2 heard without m/g/r LUNGS: CTA bilaterally, no crackles, rales or wheezes, good diaphragmatic excursion ABD: soft, non-tender, non-distended, no rebound or guarding EXTREMITY: RP and DP palpable 2+ bilat, no LE swelling or edema, extremities are warm and well-perfused NEURO: CN 2-12 grossly intact MUSC: moves all extremities with ease, no gross focal deficits. SKIN: warm and dry, does not appear jaundiced. Laboratory Results: 10/24/17 06:53 10/24/17 06:59 Test 10/23/17 15:37 10/24/17 06:53 10/24/17 06:59 10/24/17 08:41 Prothrombin Time 9.6 SECONDS (9.0-12.0) Prothromb Time International Ratio 0.9 (0.9-1.1) Lipase 180 U/L (73-393) Red Blood Count 4.54 M/uL (4.2-5.4) Mean Corpuscular Volume 80.0 fL (80-100) Mean Corpuscular Hemoglobin 27.3 pg (25-34) Mean Corpuscular Hemoglobin Concent 34.2 g/dl (32-36) RDW Standard Deviation 40.9 fL (36.4-46.3) RDW Coefficient of Variation 14.2 % (11.5-14.5) Mean Platelet Volume 9.7 fL (7.4-10.4) Anion Gap 9.0 mmol/L (3-11) Est Creatinine Clear Calc Drug Dose 150.0 ml/min Estimated GFR () 122.9 Estimated GFR (Non- 106.0 BUN/Creatinine Ratio 11.7 (10-20) Calcium Level 8.9 mg/dl (8.5-10.1) Total Bilirubin 3.4 mg/dl (0.2-1) Direct Bilirubin 2.4 mg/dl (0-0.2) Aspartate Amino Transf (AST/SGOT) 152 U/L (15-37) Alanine Aminotransferase (ALT/SGPT) 347 U/L (12-78) Alkaline Phosphatase 188 U/L (45-117) Total Protein 6.7 gm/dl (6.4-8.2) Albumin 3.4 gm/dl (3.4-5.0) Globulin 3.3 gm/dl (2.5-4.0) Albumin/Globulin Ratio 1.0 (0.9-2) Hepatitis C Antibody NEG (NEG) Monoscreen NEG (NEG) Test 10/24/17 17:40 Urine Color YELLOW Urine Appearance CLEAR (CLEAR) Urine pH 6.5 (4.5-7.5) Urine Specific [place] 1.011 (1.000-1.030) Urine Protein NEG (NEG) Urine Glucose (UA) NEG (NEG) Urine Ketones NEG (NEG) Urine Occult Blood NEG (NEG) Urine Nitrite NEG (NEG) Urine Bilirubin NEG (NEG) Urine Urobilinogen NEG (NEG) Urine Leukocyte Esterase TRACE (NEG) Urine WBC (Auto) 1-5 /hpf (0-5) Urine RBC (Auto) 0-4 /hpf (0-4) Urine Hyaline Casts (Auto) 1-5 /lpf (0-5) Urine Epithelial Cells (Auto) >30 /lpf (0-5) Urine Bacteria (Auto) NEG (NEG) Date/Time Source Procedure Growth Status 10/24/17 17:40 Stool C.difficile Toxin B Gene (PCR) - Final No C. difficile toxin B gene detected Complete Last 24 Hours Test 10/24/17 06:53 10/24/17 06:59 10/24/17 08:41 10/24/17 17:40 White Blood Count 4.64 K/uL Red Blood Count 4.54 M/uL Hemoglobin 12.4 g/dL Hematocrit 36.3 % Mean Corpuscular Volume 80.0 fL Mean Corpuscular Hemoglobin 27.3 pg Mean Corpuscular Hemoglobin Concent 34.2 g/dl RDW Standard Deviation 40.9 fL RDW Coefficient of Variation 14.2 % Platelet Count 145 K/uL Mean Platelet Volume 9.7 fL Sodium Level 140 mmol/L Potassium Level 3.8 mmol/L Chloride Level 109 mmol/L Carbon Dioxide Level 22 mmol/L Anion Gap 9.0 mmol/L Blood Urea Nitrogen 9 mg/dl Creatinine 0.76 mg/dl Est Creatinine Clear Calc Drug Dose 150.0 ml/min Estimated GFR () 122.9 Estimated GFR (Non- 106.0 BUN/Creatinine Ratio 11.7 Random Glucose 94 mg/dl Calcium Level 8.9 mg/dl Total Bilirubin 3.4 mg/dl Direct Bilirubin 2.4 mg/dl Aspartate Amino Transf (AST/SGOT) 152 U/L Alanine Aminotransferase (ALT/SGPT) 347 U/L Alkaline Phosphatase 188 U/L Total Protein 6.7 gm/dl Albumin 3.4 gm/dl Globulin 3.3 gm/dl Albumin/Globulin Ratio 1.0 Hepatitis C Antibody NEG Monoscreen NEG Date/Time Source Procedure Growth Status 10/24/17 17:40 Stool C.difficile Toxin B Gene (PCR) Pending Received 10/24/17 17:40 Stool Shiga Toxin Test Pending Received 10/24/17 17:40 Stool Stool Culture Pending Received Assessment & Plan 31 yo F s/p cholecystectomy in the past who presents as a direct transfer from [facility] ER for possible ERCP. She presented with biliary colic and nausea and was found to have elevated aminotransferases. She reports feeling somewhat improved this morning. She denies any vomiting and states that her pain is provoked by foods, specifically fatty foods such as burgers. These attacks have been going on now for the past 2 weeks. Of note, she just gave two months ago and is actively . She denies any issues with the or delivery. 1. Abdominal pain-etiologies include but are not limited to biliary colic or steatohepatitis-possibly secondary to choledocholithiasis, however, MRCP is negative for this and there is no dilation of the biliary or pancreatic duct. She does have fatty liver which also may explain the symptoms and mild bump in LFTs--possibly exacerbated in state? GI is consulted and planning for EUS and poss ERCP in am. 2. Elevated LFTs-broad differential with initial workup ordered by GI. 3. state-important to account for the fact that she is pumping and saving breast milk in her room. Must be a consideration with education to the patient if she is given any medications or contrast that may be harmful to the . DVT proph-SCDs. Full Code Dispo: uncertain at this time. Gianna Burris DO [facility] Hospitalist Consultants: GI-Dr. Martinez Poe Current Inpatient Medications: Current Inpatient Medications Medications (Trade) Dose Ordered Sig/Destini Route Start Time Stop Time Status Last Admin Dose Admin Ondansetron HCl (Zofran Inj) 4 mg Q6H PRN IV 10/23/17 15:45 11/22/17 15:44 Lactated Ringer's 1,000 ml @ 125 mls/hr Q8H IV 10/23/17 16:00 11/22/17 15:59 10/24/17 16:32 125 MLS/HR Pantoprazole Sodium 40 mg/ Syringe 10 ml @ 5 mls/min DAILY@11 IV 10/24/17 11:00 11/23/17 10:59 10/24/17 08:12 5 MLS/MIN Ketorolac Tromethamine (Toradol Inj) 15 mg Q6H PRN IV 10/23/17 15:45 10/28/17 15:44 10/23/17 23:21 15 MG Hydromorphone HCl (Dilaudid Inj) 0.5 mg Q6 PRN IV 10/23/17 15:45 11/06/17 15:44 Ioversol (Optiray 320) 116 ml UD PRN IV 10/23/17 21:30 10/27/17 21:29
[2017-10-25] MEDS: KETOROLAC TROMETHAMINE 15 MG/ML VIAL IV PRN ×2 (05:59→20:00)
[2017-10-25] MEDS: LACTATED RINGER'S 1000ML 1,000 ML IV SCH ×4 (07:20→23:51)
[2017-10-25 07:43] VITALS: BP 140/84; PULSE 58; TEMP 36.8; O2SAT 95
[2017-10-25 08:00] VITALS: O2SAT 95
[2017-10-25 08:47] LABS: ALBUMIN 3.3 gm/dl (3.4-5.0); TOTAL PROTEIN 6.3 gm/dl (6.4-8.2)
[2017-10-25] MEDS: PANTOprazole INJ 40 MG in SYRINGE 0 ML IV SCH (10:54)
[2017-10-25] MEDS ORDERED: PROPOFOL IV EMULSION 10 MG/ML 20 ML VIAL ONE (12:57)
[2017-10-25] MEDS ORDERED: MIDAZOLAM HCL 1 MG/ML 2ML VIAL ONE (12:58)
[2017-10-25] MEDS ORDERED: FENTANYL CITRATE INJ 50 MCG/1 ML 2 ML VIAL ONE ×2 (12:58→14:32)
[2017-10-25] MEDS ORDERED: LIDOCAINE HCL 2% 2 ML VIAL (20MG/ML) ONE (12:58)
[2017-10-25] MEDS ORDERED: ROCURONIUM BROMIDE 10 MG/ML 5 ML VIAL ONE (13:00)
[2017-10-25] MEDS ORDERED: GLYCOPYRROLATE INJ 0.2 MG/ML VIAL ONE ×2 (13:02)
[2017-10-25] MEDS ORDERED: NEOSTIGMINE METHYLSULFATE 5 MG/5 ML SYR ONE (13:02)
[2017-10-25] MEDS ORDERED: EpHEDrine SULFATE INJ 50 MG/ML AMP IV PRN (13:15)
[2017-10-25] MEDS ORDERED: FENTANYL CITRATE INJ 50 MCG/1 ML 2 ML VIAL IV PRN (13:15)
[2017-10-25] MEDS ORDERED: ONDANSETRON INJ 2 MG/ML 2 ML VIAL IV PRN (13:15)
[2017-10-25] MEDS ORDERED: ATROPINE SULFATE 0.1 MG/ML 5ML SYR IV PRN (13:15)
[2017-10-25] MEDS ORDERED: INDOMETHACIN 50 MG SUPP ONE (13:33)
--- NOTE | 2017-10-25 13:33 | Endo History and Physical ---
History & Physical Date of Service: October 25, 2017. Chief Complaint: Abdominal pain Referring Physician: History of Present Illness Patient with a history of abdominal pain s/p cholecystectomy 1 year ago no with recurrent pain and elevated liver tests (recent ). EUS/ ERCP requested for suspect CBD stones. Past Surgical History Hx Cardiac Surgery: No Hx Abdominal Surgery: Yes (gallbladder removed) Hx Post-Op Nausea and Vomiting: No Hx Cancer Surgery: No Hx Thoracic Surgery: No Hx Orthopedic: No Hx Urinary Tract Surgery: No Social History Smoking Status: Current Every Day Smoker Hx Substance Use: Yes (cigarettes) Hx Alcohol Use: No Allergies Coded Allergies: No Known Allergies (Unverified , 08/17/16) Current Medications Reported Home Medications Medications Dose Route/Sig Max Daily Dose Days Date Category Vital Signs Weight (Kilograms): 125.000 Height (Feet): 5 Height (Inches): 7.00 Date Time Temp Pulse Resp B/P (MAP) Pulse Ox O2 Delivery O2 Flow Rate FiO2 10/25/17 13:03 36.5 50 18 128/78 (95) 98 Room Air 10/25/17 08:00 95 Room Air 10/25/17 07:43 36.8 58 20 140/84 (102) 95 10/24/17 23:54 36.4 63 18 116/77 (90) 96 Room Air 10/24/17 23:20 Room Air 10/24/17 16:00 Room Air 10/24/17 15:31 36.6 70 20 125/81 (96) 97 Room Air Physical Exam General Appearance: no apparent distress Respiratory/Chest: Auscultation: breath sounds normal Cardiovascular: Heart Auscultation: RRR Abdomen: Inspection & Palpation: RUQ tenderness Assessment and Plan Patient with abdominal pain and elevated liver tests, history is suggestive of choledocholithiasis. We are planning for EGD and EUS to further evlauate (ERCP if stones found). If stones not seen will consider an EUS guided liver biopsy to further evaluate the cause of her liver enzyme elevation. We have discussed the risks to include bleeding, infection, perforation, pain, failed cannnulation , pancreatitis and need for repeat studies.
[2017-10-25] MEDS ORDERED: INDOMETHACIN 50 MG SUPP PR ONE (13:45)
[2017-10-25] MEDS ORDERED: LACTATED RINGER'S 1000ML 1,000 ML IV SCH ×2 (13:45→14:45)
--- NOTE | 2017-10-25 14:04 | GI REPORT ---
Patient Name: Noelle Toribio Procedure Date: 10/25/2017 1:47 PM Date of : 1985 Admit Type: Inpatient Age: 31 Gender: Female Attending MD: Chaz Poe DO Procedure: Upper GI endoscopy Providers: Chaz Poe DO Referring MD: Gianna Bruce Do Indications: Epigastric abdominal pain, Abdominal pain in the right upper quadrant Medicines: General Anesthesia Complications: No immediate complications. Estimated blood loss: Minimal. Estimated Blood Loss: Estimated blood loss was minimal. Procedure: Pre-Anesthesia Assessment: - Prior to the procedure, a History and Physical was performed, and patient medications, allergies and sensitivities were reviewed. The patient's tolerance of previous anesthesia was reviewed. - The risks and benefits of the procedure and the sedation options and risks were discussed with the patient. All questions were answered and informed consent was obtained. - Patient identification and proposed procedure were verified prior to the procedure by the physician, the nurse and the digital technician. The procedure was verified in the procedure room. - Pre-procedure physical examination revealed no contraindications to sedation. - ASA Grade Assessment: III - A patient with severe systemic disease. - After reviewing the risks and benefits, the patient was deemed in satisfactory condition to undergo the procedure. - The anesthesia plan was to use general anesthesia. - Immediately prior to administration of medications, the patient was re-assessed for adequacy to receive sedatives. - The heart rate, respiratory rate, oxygen saturations, blood pressure, adequacy of pulmonary ventilation, and response to care were monitored throughout the procedure. - The physical status of the patient was re-assessed after the procedure. After obtaining informed consent, the endoscope was passed under direct vision. Throughout the procedure, the patient's blood pressure, pulse, and oxygen saturations were monitored continuously. The scope was introduced through the mouth, and advanced to the third part of duodenum. The upper GI endoscopy was accomplished without difficulty. The patient tolerated the procedure well. Findings: The examined esophagus was normal. The Z-line was regular and was found 38 cm from the incisors. Diffuse mild inflammation characterized by erythema and granularity was found in the entire examined stomach. Biopsies were taken with a cold forceps for histology. Estimated blood loss was minimal. The examined duodenum was normal. Impression: - Normal esophagus. - Z-line regular, 38 cm from the incisors. - Chronic gastritis. Biopsied. - Normal examined duodenum. Recommendation: - Perform an upper endoscopic ultrasound (UEUS) today. - Await pathology results. Chaz Poe D.O. Chaz Poe, 10/25/2017 2:03:41 PM This report has been signed electronically. Note Initiated On: 10/25/2017 1:47 PM Number of Addenda: 0 I attest to the content of the Intraoperative Record and orders documented therein, exceptions below {[id number]}
--- NOTE | 2017-10-25 14:19 | GI REPORT ---
Patient Name: Noelle Toribio Procedure Date: 10/25/2017 1:45 PM Date of : 1985 Admit Type: Inpatient Age: 31 Gender: Female Attending MD: Chaz Poe DO Procedure: Upper EUS Providers: Chaz Poe DO Referring MD: Gianna Bruce Do Indications: Abnormal liver function test Medicines: General Anesthesia Complications: No immediate complications. Estimated blood loss: Minimal. Estimated Blood Loss: Estimated blood loss was minimal. Procedure: Pre-Anesthesia Assessment: - Prior to the procedure, a History and Physical was performed, and patient medications, allergies and sensitivities were reviewed. The patient's tolerance of previous anesthesia was reviewed. - The risks and benefits of the procedure and the sedation options and risks were discussed with the patient. All questions were answered and informed consent was obtained. - Patient identification and proposed procedure were verified prior to the procedure by the physician, the nurse and the chief operator. The procedure was verified in the procedure room. - Pre-procedure physical examination revealed no contraindications to sedation. - ASA Grade Assessment: III - A patient with severe systemic disease. - After reviewing the risks and benefits, the patient was deemed in satisfactory condition to undergo the procedure. - The anesthesia plan was to use general anesthesia. - Immediately prior to administration of medications, the patient was re-assessed for adequacy to receive sedatives. - The heart rate, respiratory rate, oxygen saturations, blood pressure, adequacy of pulmonary ventilation, and response to care were monitored throughout the procedure. - The physical status of the patient was re-assessed after the procedure. After obtaining informed consent, the endoscope was passed under direct vision. Throughout the procedure, the patient's blood pressure, pulse, and oxygen saturations were monitored continuously. The Endosonoscope was introduced through the mouth, and advanced to the second part of duodenum. The upper EUS was accomplished without difficulty. The patient tolerated the procedure well. Findings: Endosonographic Finding : Evidence of a previous cholecystectomy was identified endosonographically. Minimal hyperechoic material consistent with sludge was visualized endosonographically in the common bile duct. One stone was visualized endosonographically in the common bile duct. It was hyperechoic. The bile duct was 5 mm. There was abnormal echogenicity in the liver. This area was hyperechoic. There was no sign of significant endosonographic abnormality in the entire pancreas. No masses, no cysts, the pancreatic duct was thin in caliber. The PD was 2 mm in the pancreatic head. No lymphadenopathy seen. There was no sign of significant endosonographic abnormality in the left adrenal gland. No adrenal gland enlargement was identified. Impression: - Evidence of a cholecystectomy. - Hyperechoic material consistent with sludge was visualized endosonographically in the common bile duct. - One stone was visualized endosonographically in the common bile duct. - There was abnormal echogenicity in the liver. This was hyperechoic. Tissue has not been obtained. However, the endosonographic appearance is suggestive of fatty infiltration. - There was no sign of significant pathology in the entire pancreas. - Endosonographic images of the left adrenal gland were unremarkable. - No specimens collected. Recommendation: - Perform an ERCP today. Chaz Poe D.O. Chaz Poe DO 10/25/2017 2:19:05 PM This report has been signed electronically. Note Initiated On: 10/25/2017 1:45 PM Number of Addenda: 0 I attest to the content of the Intraoperative Record and orders documented therein, exceptions below {[id number]}
--- NOTE | 2017-10-25 14:39 | GI REPORT ---
Patient Name: Noelle Toribio Procedure Date: 10/25/2017 1:44 PM Date of : 1985 Admit Type: Inpatient Age: 31 Gender: Female Attending MD: Chaz Poe DO Procedure: ERCP Providers: Chaz Poe DO Referring MD: Gianna Bruce Do Indications: Abdominal pain of suspected biliary origin, Evaluation and possible treatment of bile duct stone(s) Medicines: General Anesthesia, Indocin 100 mg SC Complications: No immediate complications. Estimated blood loss: Minimal. Estimated Blood Loss: Estimated blood loss was minimal. Procedure: Pre-Anesthesia Assessment: - Prior to the procedure, a History and Physical was performed, and patient medications, allergies and sensitivities were reviewed. The patient's tolerance of previous anesthesia was reviewed. - The risks and benefits of the procedure and the sedation options and risks were discussed with the patient. All questions were answered and informed consent was obtained. - Patient identification and proposed procedure were verified prior to the procedure by the physician, the nurse and the fourdrinier wire weaver. The procedure was verified in the procedure room. - Pre-procedure physical examination revealed no contraindications to sedation. - ASA Grade Assessment: III - A patient with severe systemic disease. - The anesthesia plan was to use general anesthesia. - Immediately prior to administration of medications, the patient was re-assessed for adequacy to receive sedatives. - The heart rate, respiratory rate, oxygen saturations, blood pressure, adequacy of pulmonary ventilation, and response to care were monitored throughout the procedure. - The physical status of the patient was re-assessed after the procedure. After obtaining informed consent, the scope was passed under direct vision. Throughout the procedure, the patient's blood pressure, pulse, and oxygen saturations were monitored continuously.The ERCP was accomplished without difficulty. The patient tolerated the procedure well. The scope was introduced through the mouth, and advanced to the duodenum and used to inject contrast into the bile duct. Findings: A drug coordinator film of the abdomen was obtained. Surgical clips, consistent with previous cholecystectomy, were seen in the area of the right upper quadrant of the abdomen. The esophagus was successfully intubated under direct vision. The scope was advanced to a normal major papilla in the descending duodenum without detailed examination of the pharynx, larynx and associated structures, and upper GI tract. The upper GI tract was grossly normal. The bile duct was deeply cannulated with the short-nosed traction sphincterotome (Omni 35) and 0.035 in Acrobat 2 guidewire during the second cannulation attempt (PD was not cannulated today). Contrast was injected. I personally interpreted the bile duct images. The biliary orifice was stenotic. This appeared benign. The lower third of the main bile duct contained filling defect(s) thought to be a stone and sludge. The bile duct was about 8 to 9 mm in diameter. A biliary sphincterotomy was made with a monofilament short-tip traction sphincterotome using ERBE electrocautery. There was no post-sphincterotomy bleeding. To discover objects, the biliary tree was swept with a 8.5 mm to 15 mm balloon starting at the bifurcation. Sludge was swept from the duct. One or 2 small stones werr removed. No stones remained on occlusion cholangiogram. The endoscope was withdrawn from the patient. Impression: - Choledocholithiasis was found. Complete removal was accomplished by biliary sphincterotomy and balloon extraction. - Biliary papillary stenosis, benign. Recommendation: - Avoid aspirin and nonsteroidal anti-inflammatory medicines for 1 week. - Clear liquid diet today. - Observe patient's clinical course. - Please continue LR overnigt (1 liter given perioperativly and 1 liter post-operatively) Chaz Poe D.O. Chaz Poe DO 10/25/2017 2:39:15 PM This report has been signed electronically. Note Initiated On: 10/25/2017 1:44 PM Number of Addenda: 0 I attest to the content of the Intraoperative Record and orders documented therein, exceptions below {[id number]}
--- NOTE | 2017-10-25 14:40 | [facility] Post Operative Brief Note ---
Immediate Operative Summary Operative Date October 25, 2017. Pre-Operative Diagnosis 1. Elevated Liver Function Tests 2. Abdominal pain Post-Operative Diagnosis small CBD gallstones Gastritis Procedure(s) Performed Esophagogastroduodenoscopy; Upper Endoscopic Ultrasonography; Endoscopic Retrograde Cholangiopancreatogram; Sphincterotomy; Gallstone extraction; Gastric biopsies Surgeon Dr. Chaz Poe Hat Blocking Operator Surgeon(s) None Estimated Blood Loss 0 mL Findings Consistent with Post-Op Diagnosis Specimens 1) Gastric biopsies Drains None Anesthesia Type General Complication(s) none Disposition Accompanied Pt To Recover: no Disposition: Recovery Room / PACU
--- NOTE | 2017-10-25 14:59 | Progress Note ---
Progress Note Date of Service October 25, 2017. Progress Note The patient underwent upper endoscopy, EUS and ERCP this afternoon. We did find 2 very small common bile duct stones during the endoscopic ultrasound. These were removed with ERCP this afternoon. In addition, the patient was found to have mild gastritis. This is likely related to medication. Recomendations: LR 1 liter bolus pre/post procedure LR 125 ml/hour overnight Clear liquid diet today Advance diet as tolerated if pain free in am May consider early d/c on Saturday if without evidence of pancreatitis Avoid NSAIDS for 1 week please.
--- NOTE | 2017-10-25 15:11 | Anesthesiology Progress Note ---
Anesthesia Post Op Note Date & Time October 25, 2017 at 15:11 Vital Signs Pain Intensity: 0 Vital Signs Past 12 Hours Date Time Temp Pulse Resp B/P (MAP) Pulse Ox O2 Delivery O2 Flow Rate FiO2 10/25/17 15:05 48 20 143/88 95 Nasal Cannula 5 10/25/17 14:55 51 14 140/80 98 Nasal Cannula 5 10/25/17 14:49 36.3 63 18 148/84 96 Nasal Cannula 5 10/25/17 13:03 36.5 50 18 128/78 (95) 98 Room Air 10/25/17 08:00 95 Room Air 10/25/17 07:43 36.8 58 20 140/84 (102) 95 Notes Mental Status: alert / awake / arousable, participated in evaluation Pt Amnestic to Procedure: Yes Nausea / Vomiting: adequately controlled Pain: adequately controlled Airway Patency, RR, SpO2: stable & adequate BP & HR: stable & adequate Hydration State: stable & adequate Anesthetic Complications: no major complications apparent
[2017-10-25 15:54] VITALS: BP 138/85; PULSE 47; TEMP 36.7; O2SAT 93
[2017-10-25 16:00] VITALS: O2SAT 96
--- NOTE | 2017-10-25 18:50 | Progress Note ---
Internal Med Progress Note Date of Service: October 25, 2017. Provider Documentation: SUBJECTIVE: s/p ercp today no abdominal pain no nausea no fevers tolerating clears and likes diet to be advanced OBJECTIVE: Vital Signs-as noted below Exam: General-alert and oriented. Not in distress. Obese ENT-Normal hearing Neck-no neck masses Lungs-cta b/l no wheezing no crackles Heart-s1 and s2 heard regular rate and rhythm no murmurs Abdomen-soft bowel sounds present non tender no distension Extremities-no edema no erythema Neuro-alert and awake 'moves extremities Lab data as noted below. ASSESSMENT & PLAN: 31 yo F s/p cholecystectomy in the past who presents as a direct transfer from [facility] ER for possible ERCP. Presented with biliary colic and nausea and was found to have elevated aminotransferases. 1. Abdominal pain-Biliary colic and elevated Lfts.But CT scan, US and mrcp unremarkable. s/p EUS today and shoed CBND sludge and stone and s/p ercp. symptoms improved on clears now appreciate GI inputs. 2. state-To educate the patient if she is given any medications or contrast that may be harmful to the . DVT proph-SCDs. Full Code Dispo:to be determined Vital Signs: Date Time Temp Pulse Resp B/P (MAP) Pulse Ox O2 Delivery O2 Flow Rate FiO2 10/25/17 16:00 96 Nasal Cannula 2.0 10/25/17 15:54 36.7 47 138/85 (102) 93 Room Air 10/25/17 15:25 50 18 146/95 96 Nasal Cannula 2 10/25/17 15:15 36.6 48 14 143/89 94 Nasal Cannula 5 10/25/17 15:05 48 20 143/88 95 Nasal Cannula 5 10/25/17 14:55 51 14 140/80 98 Nasal Cannula 5 10/25/17 14:49 36.3 63 18 148/84 96 Nasal Cannula 5 10/25/17 13:03 36.5 50 18 128/78 (95) 98 Room Air 10/25/17 08:00 95 Room Air 10/25/17 07:43 36.8 58 20 140/84 (102) 95 10/24/17 23:54 36.4 63 18 116/77 (90) 96 Room Air 10/24/17 23:20 Room Air Lab Results: Results Past 24 Hours Test 10/25/17 07:39 10/25/17 12:45 Range/Units Total Bilirubin 0.9 0.2-1 mg/dl Direct Bilirubin 0.4 0-0.2 mg/dl Aspartate Amino Transf (AST/SGOT) 61 15-37 U/L Alanine Aminotransferase (ALT/SGPT) 219 12-78 U/L Alkaline Phosphatase 154 45-117 U/L Total Protein 6.3 6.4-8.2 gm/dl Albumin 3.3 3.4-5.0 gm/dl Urine Test NEG NEG
[2017-10-25 18:51] VITALS: BP 122/82; PULSE 49; TEMP 36.7; O2SAT 92
[2017-10-26] VITALS: BP 131/85; PULSE 55; TEMP 36.5; O2SAT 94
[2017-10-26] MEDS ORDERED: COUGH DROP (SUGAR FREE) LOZ 24 LOZ/1 BOX LOZ PRN (03:00)
[2017-10-26 07:29] VITALS: BP 129/82; PULSE 45; TEMP 36.6; O2SAT 94
[2017-10-26] MEDS: LACTATED RINGER'S 1000ML 1,000 ML IV SCH (07:45)
[2017-10-26] MEDS: PANTOprazole INJ 40 MG in SYRINGE 0 ML IV SCH (08:49)
--- NOTE | 2017-10-26 12:04 | Progress Note ---
Progress Note Date of Service October 26, 2017. Progress Note Feeling well. Tolerating diet. LFts improving. Bili normal this Am. No clinical signs of pancreatitis OK to discharge to home No NSAIDs for 1 week. No repeat procedure needed as no stents placed. Please call with questions
--- NOTE | 2017-10-26 14:09 | Discharge Instructions ---
Discharge Instructions Date of Service October 26, 2017. Admission Reason for Admission: Pancreatitis,Gallstones Discharge Discharge Diagnosis / Problem: Choledocholithiasis, elevated LFT Discharge Goals Goal(s): Decrease discomfort, Improve function Activity Recommendations Activity Limitations: resume your previous activity . Instructions / Follow-Up Instructions / Follow-Up FOLLOWUP WITH FAMILY DOCTOR. ON October AT 10:15AM. NO NSAID'S LIKE IBUPROFEN, ALEVE, MOTRIN ETC FOR ONE WEEK Current Hospital Diet Patient's current hospital diet: Regular Diet Discharge Diet Recommended Diet: Regular Diet, Low Fat Diet Procedures Procedures Performed: Esophagogastroduodenoscopy; Upper Endoscopic Ultrasonography; Endoscopic Retrograde Cholangiopancreatogram; Sphincterotomy; Gallstone extraction; Gastric biopsies Pending Studies Studies pending at discharge: no Medical Emergencies . Who to Call and When: Medical Emergencies: If at any time you feel your situation is an emergency, please call 911 immediately. . Non-Emergent Contact Non-Emergency issues call your: Primary Care Provider . . "Provider Documentation" section prepared by Julio Damon. .
[2017-10-26 14:24] VITALS: BP 129/82; PULSE 45; TEMP 36.6; O2SAT 94
--- NOTE | 2017-10-26 15:24 | Progress Note ---
Internal Med Progress Note Date of Service: October 26, 2017. Provider Documentation: SUBJECTIVE: s/p ercp yesterday tolerating regular diet no abdominal pain or nausea afebrile want to go home OBJECTIVE: Vital Signs-as noted below Exam: General-alert and oriented. Not in distress. Obese ENT-Normal hearing Neck-no neck masses Lungs-cta b/l no wheezing no crackles Heart-s1 and s2 heard regular rate and rhythm no murmurs Abdomen-soft bowel sounds present non tender no distension Extremities-no edema no erythema Neuro-alert and awake 'moves extremities Lab data as noted below. ASSESSMENT & PLAN: 31 yo F s/p cholecystectomy in the past who presents as a direct transfer from [facility] ER for possible ERCP. Presented with biliary colic and nausea and was found to have elevated aminotransferases. 1. Abdominal pain-Biliary colic and elevated Lfts.But CT scan, US and mrcp unremarkable. s/p EUS 10/25/17 and showed CBD sludge and stone and s/p ercp. symptoms improved received fluids tolerating regular diet appreciate GI inputs. discharge today 2. state-To educate the patient if she is given any medications or contrast that may be harmful to the . discharged home today Vital Signs: Date Time Temp Pulse Resp B/P (MAP) Pulse Ox O2 Delivery O2 Flow Rate FiO2 10/26/17 14:24 36.6 45 20 94 Room Air 10/26/17 13:59 Room Air 10/26/17 07:29 36.6 45 20 129/82 (98) 94 Room Air 10/26/17 00:00 36.5 55 20 131/85 (100) 94 Room Air 10/26/17 00:00 Room Air 10/25/17 18:51 36.7 49 18 122/82 (95) 92 10/25/17 16:00 96 Nasal Cannula 2.0 10/25/17 15:54 36.7 47 138/85 (102) 93 Room Air 10/25/17 15:25 50 18 146/95 96 Nasal Cannula 2
--- NOTE | 2017-10-26 15:38 | Discharge Summary ---
Discharge Summary Date of Service October 26, 2017. Discharge Summary Admission Date: October 23, 2017 at 15:25 Discharge Date: October 26, 2017 Discharge Disposition: Home Principal Diagnosis: choledocholithiasis elevated lft Secondary Diagnoses/Problems: (1) Cholelithiasis and acute cholecystitis without obstruction Procedures: MRCP: 1. No evidence of biliary or pancreatic ductal dilatation 2. No filling defects to indicate common bile duct calculi 3. Long cystic duct remnant 4. Surgically absent gallbladder 5. Splenomegaly CT ABD/PELVIS: 1. No acute intra-abdominal pathology. No CT evidence of pancreatitis, which does not exclude the diagnosis. 2. Postsurgical changes of cholecystectomy. 3. Hepatic steatosis. Correlate with liver function tests to exclude steatohepatitis as a cause for abdominal pain. 4. Splenomegaly. UPPER EUS: Impression: - Evidence of a cholecystectomy. - Hyperechoic material consistent with sludge was visualized endosonographically in the common bile duct. - One stone was visualized endosonographically in the common bile duct. - There was abnormal echogenicity in the liver. This was hyperechoic. Tissue has not been obtained. However, the endosonographic appearance is suggestive of fatty infiltration. - There was no sign of significant pathology in the entire pancreas. - Endosonographic images of the left adrenal gland were unremarkable. - No specimens collected. Recommendation: - Perform an ERCP today. S/P ERCP: Impression: - Choledocholithiasis was found. Complete removal was accomplished by biliary sphincterotomy and balloon extraction. - Biliary papillary stenosis, benign. Recommendation: - Avoid aspirin and nonsteroidal anti-inflammatory medicines for 1 week. - Clear liquid diet today. - Observe patient's clinical course. - Please continue LR overnigt (1 liter given perioperativly and 1 liter post-operatively) Consultations: GI-Dr. Martinez Poe Admission Information HPI (per Admitting provider): Patient is a 31yo F who presents directly from [facility] ED with RUQ pain. Was previously admitted to [facility] in August 2016 for cholelithiasis and had a laparoscopic cholecystectomy by Dr. Calles. Has not had any issue with abdominal pain since then, until she woke up with RUQ abdominal pain 2 nights ago, which resolved spontaneously. Patient woke up this morning with sharp, stabbing, 9/10 RUQ pain with associated nausea. Was in too much pain to lift 2 month old. Endorses an episode of diarrhea this morning. Called PCP and was instructed to go to ED for further evaluation. In [place], patient's Tbili was 3.07, Dbili of 1.66, AST of 293, ALT of 446, and alk phos of 164. RUQ ultrasound was unremarkable. CT abd/pelvis was not performed. Patient was transferred here for GI support. Currently endorses 3/10 pain. Denies fever, chills, lightheadedness, headache, visual changes, chest pain, SOB, vomiting or constipation. Has not eaten since last evening. Physical Exam (per Admitting): General Appearance: WD/WN, no apparent distress Head: normocephalic, atraumatic Eyes: normal inspection, sclerae normal ENT: normal ENT inspection, hearing grossly normal, pharynx normal (dry mucous membranes ) Neck: supple, thyroid normal, trachea midline Respiratory/Chest: chest non-tender, lungs clear, normal breath sounds, no respiratory distress, no accessory muscle use Cardiovascular: regular rate, rhythm, no murmur, normal peripheral pulses Abdomen/GI: normal bowel sounds, soft, no organomegaly, + tenderness (Mild TTP of RUQ, no guarding ) Back: normal inspection Extremities/Musculoskelatal: normal inspection, no calf tenderness, no pedal edema Neurologic/Psych: no motor/sensory deficits, alert, normal mood/affect, oriented x 3 Skin: normal color, warm/dry Hospital Course 31 yo F s/p cholecystectomy in the past who presents as a direct transfer from [facility] ER for possible ERCP. Presented with biliary colic and nausea and was found to have elevated aminotransferases. 1. Abdominal pain-Biliary colic and elevated Lfts.But CT scan, US and mrcp unremarkable. s/p EUS 10/25/17 and showed CBD sludge and stone and s/p ercp. symptoms improved received fluids tolerating regular diet appreciate GI inputs. discharge today 2. state-To educate the patient if she is given any medications or contrast that may be harmful to the . discharged home today Total time spent on discharge = 35MINUTES This includes examination of the patient, discharge planning, medication reconciliation, and communication with other providers. Discharge Instructions Discharge Instructions Date of Service October 26, 2017. Admission Reason for Admission: Pancreatitis,Gallstones Discharge Discharge Diagnosis / Problem: Choledocholithiasis, elevated LFT Discharge Goals Goal(s): Decrease discomfort, Improve function Activity Recommendations Activity Limitations: resume your previous activity . Instructions / Follow-Up Instructions / Follow-Up FOLLOWUP WITH FAMILY DOCTOR. ON October AT 10:15AM. NO NSAID'S LIKE IBUPROFEN, ALEVE, MOTRIN ETC FOR ONE WEEK Current Hospital Diet Patient's current hospital diet: Regular Diet Discharge Diet Recommended Diet: Regular Diet, Low Fat Diet Procedures Procedures Performed: Esophagogastroduodenoscopy; Upper Endoscopic Ultrasonography; Endoscopic Retrograde Cholangiopancreatogram; Sphincterotomy; Gallstone extraction; Gastric biopsies Pending Studies Studies pending at discharge: no Medical Emergencies . Who to Call and When: Medical Emergencies: If at any time you feel your situation is an emergency, please call 911 immediately. . Non-Emergent Contact Non-Emergency issues call your: Primary Care Provider . . "Provider Documentation" section prepared by Julio Damon. .
[2017-10-27 03:33] LABS: ANA SCREEN TC 249X NEGATIVE (NEGATIVE); HEPATITIS A IGM TC 51813E NON-REACTIVE (NON-REACTIVE); HEPATITIS B CORE IGM TC51854R NON-REACTIVE (NON-REACTIVE); HEPATITIS BE ANTIGEN TC 555 Nonreactive; PARVOVIRUS IgM INDEX 0.2 (<0.9)
--- NOTE | 2017-10-28 08:38 | DIAGNOSTIC IMAGING REPORT ---
ERCP BILIARY DUCTAL CLINICAL HISTORY: History of cholecystectomy with elevated LFTs and pancreatitis. COMPARISON STUDY: CT scan dated 10/23/2017 FLUOROSCOPY TIME: 75 seconds. NUMBER OF FLUOROSCOPIC IMAGES: 17 FINDINGS: Fluoroscopic images from an ERCP are provided for interpretation. There are surgical clips in the region the gallbladder fossa consistent with a prior cholecystectomy. The common bile duct was cannulated. Contrast was instilled. There were no filling defects suspicious for calculi. It appears a sphincterotomy was performed. A balloon catheter was swept through the duct. On the final film there was good drainage. IMPRESSION: Fluoroscopic spot images obtained during ERCP as described above. Electronically signed by: Warner Hawk M.D. 10/28/2017 8:36 AM Dictated Date/Time: 10/28/2017 8:35 AM
== END 2017-10-26 16:00 | disposition home or self-care (01) | DRG 410 ==
LOC: C.MS2W 15:25
PROVIDERS: ADMIT Hospitalist; ATTEND Internal Medicine
PROC: 0FB98ZX Excision of Common Bile Duct, Via Natural or Artificial Opening Endoscopic, Diagnostic (ICD-10-PCS; principal; 2017-10-25 07:00)
PROC: 0FC90ZZ Extirpation of Matter from Common Bile Duct, Open Approach (ICD-10-PCS; principal; 2017-10-25 07:00)
DX: K80.42 Calculus of bile duct with acute cholecystitis without obstruction (principal); K82.9 Disease of gallbladder, unspecified; F17.200 Nicotine dependence, unspecified, uncomplicated; R79.89 Other specified abnormal findings of blood chemistry; E66.9 Obesity, unspecified; K76.0 Fatty (change of) liver, not elsewhere classified; K29.70 Gastritis, unspecified, without bleeding; Z90.49 Acquired absence of other specified parts of digestive tract

== ENCOUNTER 2024-12-09 09:57 | Observation (INO) ==
--- NOTE | 2024-12-09 10:10 | Emergency Department Note ---
History of Present Illness General Chief complaint: Flank Pain Stated complaint: FLANK PAIN/LT, POSSIBLE KIDNEY STONE Time Seen by Provider: 12/09/24 10:04 History of Present Illness Maximum Pain Intensity: 8 This is a 39-year-old female that presents to the emergency department via private vehicle with complaints of "left flank pain". The patient notes that on the of this month she was seen at [facility] and diagnosed with a 4 mm left-sided kidney stone. She was given Flomax and oxycodone. She notes that the pain never fully went away however returned sharply yesterday and today. She notes today around 8 AM acute worsening of the left flank pain. Current pain 8/10. No fevers. She does have associated nausea but no vomiting. She did take oxycodone earlier today with no relief of pain. She notes allergy to the nicotine patch. She denies any other pertinent past medical history. Home Medications Medication Instructions Recorded Confirmed Type Cbd Bar 1 piece PO DAILY PRN Anxiety 12/09/24 12/09/24 History albuterol sulfate 90 mcg/actuation 2 puff inhalation Q6H PRN Wheezing 12/09/24 12/09/24 History aerosol inhaler cefpodoxime 200 mg tablet 200 mg PO BID 7 days #14 tabs 12/09/24 Rx cholecalciferol (vitamin D3) 25 25 mcg PO DAILY 12/09/24 12/09/24 History mcg (1,000 unit) tablet cyanocobalamin (vitamin B-12) 1,000 mcg PO DAILY 12/09/24 12/09/24 History 2,000 mcg tablet,extended release furosemide 20 mg tablet 10 mg PO DAILY 12/09/24 12/09/24 History losartan 50 mg tablet 50 mg PO BID 12/09/24 12/09/24 History magnesium oxide 200 mg PO DAILY 12/09/24 12/09/24 History potassium chloride 10 mEq 10 meq PO BID 12/09/24 12/09/24 History tablet,extended release Allergies Allergy/AdvReac Type Severity Reaction Status Date / Time nicotine Allergy Intermediate itchy,numb, Verified 12/09/24 16:06 tingly pineapple Allergy " MOUTH Verified 12/09/24 16:19 TINGLES" gluten AdvReac Gastrointestinal Verified 12/09/24 16:17 Upset SEAFOOD AdvReac Migraine Uncoded 12/09/24 16:22 Past Med/Surg History Problem List (Updated 12/09/24 @ 22:[address] PA-C) Abnormal urinalysis (Acute) History of kidney stones (Acute) Acute left flank pain (Acute) Dysuria HTN (hypertension) Pyelonephritis Surgical History S/P dilatation and curettage H/O tubal ligation Family History Other No significant family history Social History Smoking Status: Never smoker Preferred Language: Chinese marital status: Single Current Living Situation: Alone current occupational status: employed Feels Safe at Home: Yes Review of Systems A total of 10 systems reviewed and were otherwise negative Physical Exam Vital Signs Vital Signs - 24 hr 12/09/24 10:01 12/09/24 10:36 12/09/24 10:36 Temperature 36.4 C L Temperature Source Temporal Artery Scan Pulse Rate 87 78 Pulse Rate [Apical] 79 Pulse Rhythm Regular Pulse Rhythm [Apical] Regular Pulse Strength [Apical] Normal Respiratory Rate 20 17 17 Respiratory Effort / Characteristics Non-Labored Spontaneous Non-Labored Spontaneous Respiratory Depth Normal Normal Respiratory Pattern Regular Blood Pressure 149/91 H Blood Pressure [Right Arm] 118/73 Blood Pressure Mean 110 Blood Pressure Mean [Right Arm] 88 Blood Pressure Position Sitting Blood Pressure Position [Right Arm] Semi-fowlers Pulse Oximetry 97 95 95 Oxygen Delivery Method Room Air Room Air Room Air Sepsis Recent Fever Within 48 Hours No Sepsis New/Unexplained Change in Mental Status No Sepsis Action Taken by Nursing No Action Required 12/09/24 12:00 12/09/24 12:29 12/09/24 13:27 Temperature Temperature Source Pulse Rate 71 Pulse Rate [Apical] 63 66 Pulse Rhythm Pulse Rhythm [Apical] Regular Pulse Strength [Apical] Normal Respiratory Rate 16 20 Respiratory Effort / Characteristics Non-Labored Spontaneous Non-Labored Respiratory Depth Normal Normal Respiratory Pattern Blood Pressure Blood Pressure [Right Arm] 135/79 126/80 Blood Pressure Mean Blood Pressure Mean [Right Arm] 97 95 Blood Pressure Position Blood Pressure Position [Right Arm] Semi-fowlers Pulse Oximetry 99 99 Oxygen Delivery Method Room Air Room Air Sepsis Recent Fever Within 48 Hours Sepsis New/Unexplained Change in Mental Status Sepsis Action Taken by Nursing 12/09/24 15:00 12/09/24 16:31 12/09/24 17:00 Temperature Temperature Source Pulse Rate 67 Pulse Rate [Apical] 69 99 H Pulse Rhythm Pulse Rhythm [Apical] Regular Pulse Strength [Apical] Respiratory Rate 24 Respiratory Effort / Characteristics Non-Labored Spontaneous Respiratory Depth Normal Respiratory Pattern Regular Blood Pressure Blood Pressure [Right Arm] 120/76 159/73 H Blood Pressure Mean Blood Pressure Mean [Right Arm] 90 101 Blood Pressure Position Blood Pressure Position [Right Arm] Lying Pulse Oximetry 96 98 Oxygen Delivery Method Room Air Room Air Sepsis Recent Fever Within 48 Hours Sepsis New/Unexplained Change in Mental Status Sepsis Action Taken by Nursing 12/09/24 19:00 Temperature Temperature Source Pulse Rate Pulse Rate [Apical] 74 Pulse Rhythm Pulse Rhythm [Apical] Regular Pulse Strength [Apical] Respiratory Rate 19 Respiratory Effort / Characteristics Non-Labored Spontaneous Respiratory Depth Respiratory Pattern Regular Blood Pressure Blood Pressure [Right Arm] 112/85 Blood Pressure Mean Blood Pressure Mean [Right Arm] 94 Blood Pressure Position Blood Pressure Position [Right Arm] Lying Pulse Oximetry 97 Oxygen Delivery Method Room Air Sepsis Recent Fever Within 48 Hours Sepsis New/Unexplained Change in Mental Status Sepsis Action Taken by Nursing VITAL SIGNS - Vital signs and nursing notes were reviewed. Stable and afebrile. GENERAL - 39-year-old female appearing her stated age who is in no acute distress. Communicates well with provider and answers questions appropriately. SKIN - Without rashes. No meningeal or petechial rash. HEAD - NC/AT. EYES - PERRL with EOMI bilaterally. Sclera anicteric. MOUTH/OROPHARYNX - Without perioral cyanosis. NECK - Neck with FROM LUNGS - Chest wall symmetric without accessory muscle use, intercostals retractions, or central cyanosis. Normal vesicular breath sounds CTA B/L. No wheezes, rales, or rhonchi appreciated. CARDIAC - RRR ABDOMEN - Abdominal contour normal without pulsations or visible masses. BS normoactive all four quadrants. No tenderness, palpable masses, hepatosplenomegaly, or ascites noted. MSK: No TTP overlying spinous processes or paraspinous musculature. EXTREMITIES - No clubbing or peripheral cyanosis. +5/5 strength noted in UE/LE bilaterally. NEUROLOGIC - Cranial nerves II through XII grossly intact. PSYCH -alert, oriented and pleasant on exam Course Administered Medications Discontinued Medications Hydromorphone HCl (Hydromorphone Inj 0.5 Mg/0.5 Ml Syr) 0.5 mg IV NOW STA Stop: 12/09/24 10:18 Last Admin: 12/09/24 10:29 Dose: 0.5 mg Documented By: SARIKA Hydromorphone HCl (Hydromorphone Inj 0.5 Mg/0.5 Ml Syr) 0.5 mg IV NOW STA Stop: 12/09/24 13:15 Last Admin: 12/09/24 13:32 Dose: 0.5 mg Documented By: SARIKA Sodium Chloride (Nss) 1,000 mls @ 999 mls/hr IV .Q1H1M ONE Stop: 12/09/24 11:17 Last Infusion: 12/09/24 13:27 Dose: Infused Documented By: Admin: 12/09/24 10:28 Dose: 999 mls/hr Documented By: SARIKA Ceftriaxone Sodium (Rocephin) 2,000 mg in 50 mls @ 100 mls/hr IV NOW STA Stop: 12/09/24 16:44 Last Infusion: 12/09/24 17:04 Dose: Infused Documented By: Admin: 12/09/24 16:22 Dose: 100 mls/hr Documented By: SAULO Ioversol (Optiray 320 125ml) 118 ml IV ONCE ONE Stop: 12/09/24 12:16 Last Admin: 12/09/24 12:15 Dose: 118 ml Documented By: NICKO Ketorolac Tromethamine (Ketorolac Tromethamine 15 Mg/Ml Vial) 10 mg IV NOW ONE Stop: 12/09/24 13:15 Last Admin: 12/09/24 13:32 Dose: 10 mg Documented By: SARIKA Lidocaine (Lidocaine 5% 1 Patch) 1 patch TD NOW STA Stop: 12/09/24 15:32 Last Admin: 12/09/24 15:45 Dose: 1 patch Documented By: SAULO Ondansetron HCl (Ondansetron Inj 2 Mg/Ml 2 Ml Vial) 4 mg IV NOW STA Stop: 12/09/24 10:18 Last Admin: 12/09/24 10:28 Dose: 4 mg Documented By: SARIKA Ondansetron HCl (Ondansetron Inj 2 Mg/Ml 2 Ml Vial) 4 mg IV NOW STA Stop: 12/09/24 15:32 Last Admin: 12/09/24 15:46 Dose: 4 mg Documented By: SAULO Medical Decision Making Laboratory Data 12/09/24 10:25 12/09/24 10:25 Lab Results 12/09/24 12/09/24 12/09/24 Range/Units 10:25 10:30 10:31 WBC 10.43 (4.8-10.8) K/ul RBC 4.78 (4.20-5.40) M/uL Hgb 14.0 (12.0-16.0) g/dl Hct 40.6 (37.0-47.0) % MCV 84.9 (80.0-100.0) fL MCH 29.3 (25.0-34.0) pg MCHC 34.5 (32.0-36.0) g/dL RDW Std Deviation 39.6 (36.4-46.3) fL RDW Coeff of Bennie 12.9 (11.5-14.5) % Plt Count 203 (130-400) K/uL MPV 10.8 (9.4-12.4) fL Immature Gran % (Auto) 1.2 % Neut % (Auto) 67.8 % Lymph % (Auto) 23.5 % [place] % (Auto) 4.1 % Eos % (Auto) 2.9 % Baso % (Auto) 0.5 % Neut # (Auto) 7.08 H (1.40-6.50) K/uL Lymph # (Auto) 2.45 (1.20-3.40) K/uL F[place] # (Auto) 0.43 (0.11-0.59) K/uL Eos # (Auto) 0.30 (0.00-0.50) K/uL Baso # (Auto) 0.05 (0.00-0.20) K/uL Immature Gran # (Auto) 0.12 (0.01-0.20) K/uL Sodium 137 (136-145) mmol/L Potassium 3.9 (3.5-5.1) mmol/L Chloride 107 (98-107) mmol/L Carbon Dioxide 25 (21-32) mmol/L Anion Gap 5 (3-11) BUN 9 (6-23) mg/dl Creatinine 0.77 (0.6-1.2) mg/dl Est Cr Clr Drug Dosing 145.4 ml/min eGFR 101.83 BUN/Creatinine Ratio 11.7 (10-20) Glucose 128 H (70-99(Fasting)) mg/dl Calcium 9.4 (8.6-10.3) mg/dl Total Bilirubin 0.4 (0.2-1.0) mg/dl AST 14 (13-39) U/L ALT 13 (7-52) U/L Alkaline Phosphatase 62 (34-104) U/L Total Protein 6.6 (6.0-8.3) gm/dl Albumin 4.4 (3.4-5.0) gm/dl Globulin 2.2 L (2.5-4.0) gm/dl Albumin/Globulin Ratio 2.0 (0.9-2) Lipase 28 (11-82) U/L Urine Color Yellow Urine Appearance Clear (Clear) Urine pH 6.5 (4.5-7.5) Ur Specific [place] 1.008 (1.000-1.030) Urine Protein Negative (Negative) Urine Glucose (UA) Negative (Negative) Urine Ketones Negative (Negative) Urine Blood 1+ H (Negative) Urine Nitrite Negative (Negative) Urine Bilirubin Negative (Negative) Urine Urobilinogen Negative (Negative) Ur Leukocyte Esterase Negative (Negative) Urine WBC (Auto) 0-5 (0-5) /hpf Urine RBC (Auto) 3-5 H (0-2) /hpf U Hyaline Cast (Auto) 0-2 (0-2) /lpf U Epithel Cells (Auto) 0-2 (0-2) /hpf Urine Bacteria (Auto) 1+ H (None Seen) POC Ur Test NEG (NEG) Urine Comment Imaging Data Radiologist's Impression: KUB X-Ray 12/09/24 10:32 KUB HISTORY: recent 4mm L prox ureteral calc, L flank pain COMPARISON STUDY: 01/27/2019 FINDINGS: Stable right upper quadrant surgical clips. There is mild retained stool. No bowel obstruction seen. No renal or ureteral calculi seen. IMPRESSION: No renal calculi seen. ACT 112: Negative or not required by law. The above report was generated using voice recognition software. It may contain grammatical, syntax or spelling errors. Electronically signed by: Emir Wilson M.D. 12/09/2024 11:34 AM Renal Ultrasound 12/09/24 10:32 RENAL ULTRASOUND HISTORY: recent 4mm L prox ureteral calc, L flank pain COMPARISON: 07/10/2019 FINDINGS: Right kidney measures 12 x 5 cm. Left kidney measures 12 x 5 cm. There is no hydronephrosis at the right kidney. There is minimal hydronephrosis of the left kidney. No renal calculi seen. There is normal Doppler flow to both kidneys. Grossly stable splenomegaly. Urinary bladder is unremarkable. IMPRESSION: Minimal left hydronephrosis with no renal calculi seen. ACT 112: Negative or not required by law. Electronically signed by: Emir Wilson M.D. 12/09/2024 11:08 AM Abdomen/Pelvis CT 12/09/24 11:[address] WITH IV CONTRAST CT DOSE: 1535.53 mGy.cm HISTORY: L flank pain TECHNIQUE: Multiaxial CT images of the abdomen and pelvis were performed following the IV administration of 120 cc of Optiray, A dose lowering technique was utilized adhering to the principles of ALARA. COMPARISON STUDY: 07/10/2019 FINDINGS: ABDOMEN: Gallbladder is surgically absent. There is mild fatty liver. There is stable splenomegaly measuring 16 cm. Pancreas and adrenal glands are unremarkable. Kidneys show no hydronephrosis or calculi. No abdominal aortic aneurysm. Pelvis: Uterus is absent. No adnexal mass seen. Urinary bladder is decompressed. No bowel inflammation or obstruction seen. Normal appendix. No free fluid, free air, or abscess. No enlarged adenopathy. Osseous structures: No acute osseous findings. IMPRESSION: 1. No acute findings. 2. Stable mild splenomegaly. ACT 112: Negative or not required by law. The above report was generated using voice recognition software. It may contain grammatical, syntax or spelling errors. Electronically signed by: Emir Wilson M.D. 12/09/2024 12:28 PM [facility] Narrative Patient was seen and evaluated as above in room A09b. Review was performed of triage nursing notes and vital signs. I did review pertinent previous visits and patient history. After obtaining a thorough history and physical examination the above work up was performed. Patient presents to us today for return/worsening of left flank pain with known 4 mm left proximal ureteral calculus that as of 11/28/2024 resulted in mild hydronephrosis. She notes that following that diagnosis she never felt 100% better but pain acutely worsened this morning. She appears to be in pain on examination. Options of care were discussed with the patient. IV access with established labs were drawn. No leukocytosis or concerning anemia. No emergent metabolic disturbance. Hyperglycemia 128. Lipase normal. Urinalysis with blood, red blood cells, 1+ bacteria. I did review the patient's CT scan report from 11/28/2024. This was CT scan abdomen/pelvis without IV or oral contrast. Per radiologist there was a 4 mm left proximal ureteral calculus with mild hydronephrosis. Suspect enlarged right adnexa possibly due to underlying physiologic cysts. Nonemergent pelvic ultrasound was recommended at that time for further evaluation. Hepatosplenomegaly was also noted. I do not have access to the images from that scan. KUB plus ultrasound of the kidneys obtained. I reviewed the KUB. No stone seen. Ultrasound as above. Minimal left hydro with no renal calculi seen. Patient's pain continued despite analgesics and antiemetics here. Decision was made to proceed with CT scan of the abdomen/pelvis to further assess. We will perform this CT with IV contrast to further assess for additional etiologies. Results of this as above. This was essentially negative from an acute standpoint. I reviewed the incidentals with the patient. Pain continued. I discussed benefit versus risk of inpatient versus outpatient management. Patient does prefer to stay which I believe is reasonable noting the ongoing pain despite multiple analgesics here. There is also some nausea. Plan at this time is further evaluation and management in the inpatient setting. Case discussed with the hospitalist service. Please refer to further documentation regarding her stay. GCS: 15 In the evaluation and treatment of this patient the following differential diagnoses were entertained: UTI, nephritis, torsion, bowel obstruction, diverticulitis, kidney stone, among others. Impression & Plan Acute left flank pain, History of kidney stones, Abnormal urinalysis Discharge Plan Visit Data Chief Complaint: Flank Pain Stated Complaint: FLANK PAIN/LT, POSSIBLE KIDNEY STONE ED Provider: Stanley Condon ED Midlevel Provider: Lance Lane Discharge Problem: Acute left flank pain, History of kidney stones, Abnormal urinalysis Patient Disposition: Admitted As Inpatient Condition: Good Discharge Instructions Interventions: ED Discharge Assessment Last Done: 12/09/24 20:32
[2024-12-09] MEDS: ONDANSETRON INJ 2 MG/ML 2 ML VIAL IV STA ×2 (10:28→15:46)
[2024-12-09] MEDS: SODIUM CHLORIDE 0.9% 1,000 ML IV ONE (10:28)
[2024-12-09] MEDS: HYDROmorphone INJ 0.5 MG/0.5 ML SYR IV STA ×2 (10:29→13:32)
[2024-12-09 10:38] LABS: Basophils # (auto) 0.05 K/uL (0.00-0.20); Basophils % (auto) 0.5 %; Eosinophils % (auto) 2.9 %; Hematocrit (blood only) 40.6 % (37.0-47.0); Immature Granulocytes # (auto) 0.12 K/uL (0.01-0.20); Immature Granulocytes % (auto) 1.2 %; Lymphocytes # (auto) 2.45 K/uL (1.20-3.40); Lymphocytes % (auto) 23.5 %; Mean Corpuscular Hemoglobin 29.3 pg (25.0-34.0); Mean Corpuscular Hgb Conc 34.5 g/dL (32.0-36.0); Mean Corpuscular Volume 84.9 fL (80.0-100.0); Mean Platelet Volume 10.8 fL (9.4-12.4); Monocytes # (auto) 0.43 K/uL (0.11-0.59); Monocytes % (auto) 4.1 %; Neutrophils # (auto) 7.08 K/uL (1.40-6.50); Neutrophils % (auto) 67.8 %; Platelet Count 203 K/uL (130-400); RDW Coefficient of Variation 12.9 % (11.5-14.5); RDW Standard Deviation 39.6 fL (36.4-46.3); Red Blood Count 4.78 M/uL (4.20-5.40); White Blood Count 10.43 K/ul (4.8-10.8)
[2024-12-09 10:42] LABS: Appearance Urine Clear (Clear); Bacteria Urine Automated 1+ (None Seen); Bilirubin Urine Negative (Negative); Blood Urine 1+ (Negative); Cast Urine Automated 0-2 /lpf (0-2); Color Urine Yellow; Epithelial Cell Urine Auto 0-2 /hpf (0-2); Glucose Urine UA Negative (Negative); Ketones Urine Negative (Negative); Leukocyte Esterase Urine Negative (Negative); Nitrite Urine Negative (Negative); Protein Urine Negative (Negative); Specific Gravity Urine 1.008 (1.000-1.030); Urobilinogen Urine Negative (Negative); WBC Urine Automated 0-5 /hpf (0-5); pH Urine 6.5 (4.5-7.5)
[2024-12-09 10:57] LABS: BUN Creatinine Ratio 11.7 (10-20); Bilirubin,Total 0.4 mg/dl (0.2-1.0); Calcium 9.4 mg/dl (8.6-10.3); Creatinine Clr Calc Pharmacy 145.4 ml/min; Globulin 2.2 gm/dl (2.5-4.0); Potassium 3.9 mmol/L (3.5-5.1); Total Protein 6.6 gm/dl (6.0-8.3)
--- NOTE | 2024-12-09 11:10 | Ultrasound Report ---
RENAL ULTRASOUND HISTORY: recent 4mm L prox ureteral calc, L flank pain COMPARISON: 07/10/2019 FINDINGS: Right kidney measures 12 x 5 cm. Left kidney measures 12 x 5 cm. There is no hydronephrosis at the right kidney. There is minimal hydronephrosis of the left kidney. No renal calculi seen. Ther e is normal Doppler flow to both kidneys. Grossly stable splenomegaly. Urinary bladder is unremarkabl e. IMPRESSION: Minimal left hydronephrosis with no renal calculi seen. ACT 112: Negative or not required by law. Electronically signed by: Emir Wilson M.D. 12/09/2024 11:08 AM
--- NOTE | 2024-12-09 11:36 | XRay Report ---
KUB HISTORY: recent 4mm L prox ureteral calc, L flank pain COMPARISON STUDY: 01/27/2019 FINDINGS: Stable right upper quadrant surgical clips. There is mild retained stool. No bowel obstruct ion seen. No renal or ureteral calculi seen. IMPRESSION: No renal calculi seen. ACT 112: Negative or not required by law. The above report was generated using voice recognition software. It may contain grammatical, syntax o r spelling errors. Electronically signed by: Emir Wilson M.D. 12/09/2024 11:34 AM
[2024-12-09] MEDS: OPTIRAY 320 125ml IV ONE (12:15)
--- NOTE | 2024-12-09 12:29 | CT Scan Report ---
ABDOMEN AND PELVIS CT WITH IV CONTRAST CT DOSE: 1535.53 mGy.cm HISTORY: L flank pain TECHNIQUE: Multiaxial CT images of the abdomen and pelvis were performed following the IV administrat ion of 120 cc of Optiray, A dose lowering technique was utilized adhering to the principles of ALARA . COMPARISON STUDY: 07/10/2019 FINDINGS: ABDOMEN: Gallbladder is surgically absent. There is mild fatty liver. There is stable splenomegaly me asuring 16 cm. Pancreas and adrenal glands are unremarkable. Kidneys show no hydronephrosis or calcul i. No abdominal aortic aneurysm. Pelvis: Uterus is absent. No adnexal mass seen. Urinary bladder is decompressed. No bowel inflammatio n or obstruction seen. Normal appendix. No free fluid, free air, or abscess. No enlarged adenopathy. Osseous structures: No acute osseous findings. IMPRESSION: 1. No acute findings. 2. Stable mild splenomegaly. ACT 112: Negative or not required by law. The above report was generated using voice recognition software. It may contain grammatical, syntax o r spelling errors. Electronically signed by: Emir Wilson M.D. 12/09/2024 12:28 PM
[2024-12-09] MEDS: KETOROLAC TROMETHAMINE 15 MG/ML VIAL IV ONE (13:32)
[2024-12-09] MEDS: LIDOCAINE 5% 1 PATCH TD STA (15:45)
--- NOTE | 2024-12-09 16:03 | History & Physical Report ---
Date of Service December 09, 2024 Assessment & Plan (1) Pyelonephritis: (2) HTN (hypertension): (3) Dysuria: Plan 39 year old female with h/o HTN presenting with left flank pain: #Pyelonephritis: -CT A/P negative, no stones identified although study was done with contrast -KUB negative for calculi -US kidneys negative for calculi but mild left-sided hydronephrosis noted. -UA 1+ blood, 3-5RBC, 1+ bacteria - though UA fairly unremarkable, will obtain urine culture d/t associated dysuria and urinary frequency. -Does not meet sepsis criteria -Continue Ceftriaxone IV 2g daily - tailor abx based on urine C&S -Consider reevaluating for presence of stone if patient fails to improve with treatment of pyelo -Tylenol, Toradol, Dilaudid PRN for pain -Zofran PRN for nausea -Poor PO intake d/t associated nausea - start maintenance fluids, LR@125ml/h x2L -Check AM labs #HTN: -Continue home Losartan Dispo: Admit med-surg VTE ppx: SCDs/ambulation - low risk FEN/GI: LR@125mL/hx2L, gluten free diet Full Code History of Present Illness Primary Care Provider: Rell Jones DO Noelle Toribio is a 39 year old female with PMHx of HTN who presents to the ER with left flank pain. Patient had similar pain about 2 weeks ago, was seen at outside ED and noted to have a 4mm kidney stone. She was started on conservative management with Flomax and oxycodone for pain. Pain never fully subsided but was manageable with minimal medication until this morning, when she had acute recurrence of severe left flank pain. Patient is not sure whether she may have passed stone over past 2 weeks. She currently notes dysuria, suprapubic discomfort, and increased urinary frequency. Also reports nausea, but denies vomiting or diarrhea. Denies fevers/chills. ED Course: UA 1+ blood, 3-5RBC, 1+ bacteria CT A/P negative, no stones identified although study was done with contrast KUB also negative US kidneys negative for calculi but mild left-sided hydronephrosis noted. No leukocytosis, VSS S/P NSSx1L, Ceftriaxone 2gx1 Required Zofranx2 for nausea, Dilaudid/Toradol for pain control Allergies Allergy/AdvReac Type Severity Reaction Status Date / Time nicotine Allergy Intermediate itchy,numb, Verified 12/09/24 16:06 tingly pineapple Allergy " MOUTH Verified 12/09/24 16:19 TINGLES" gluten AdvReac Gastrointestinal Verified 12/09/24 16:17 Upset SEAFOOD AdvReac Migraine Uncoded 12/09/24 16:22 Home Medications Medication Instructions Recorded Confirmed Type Cbd Bar 1 piece PO DAILY PRN Anxiety 12/09/24 12/09/24 History albuterol sulfate 90 mcg/actuation 2 puff inhalation Q6H PRN Wheezing 12/09/24 12/09/24 History aerosol inhaler cholecalciferol (vitamin D3) 25 25 mcg PO DAILY 12/09/24 12/09/24 History mcg (1,000 unit) tablet cyanocobalamin (vitamin B-12) 1,000 mcg PO DAILY 12/09/24 12/09/24 History 2,000 mcg tablet,extended release furosemide 20 mg tablet 10 mg PO DAILY 12/09/24 12/09/24 History losartan 50 mg tablet 50 mg PO BID 12/09/24 12/09/24 History magnesium oxide 200 mg PO DAILY 12/09/24 12/09/24 History potassium chloride 10 mEq 10 meq PO BID 12/09/24 12/09/24 History tablet,extended release Past Med/Surg History Problem List (Updated 12/09/24 @ 19:20 by Sudarshan Suarez DO) Dysuria HTN (hypertension) Pyelonephritis Surgical History S/P dilatation and curettage H/O tubal ligation Family History Other No significant family history Social History Smoking Status: Never smoker Preferred Language: Kazakh marital status: Single Current Living Situation: Alone current occupational status: employed Feels Safe at Home: Yes Review of Systems Review of Systems: as per HPI Physical Exam Physical Exam: Constitutional: no acute distress HEENT: NCAT, no conjunctival injection CV: RRR, extremities well-perfused, no LE edema Resp: Lungs clear to auscultation bilterally, no increased work of breathing GI: nondistended, non-tender to palpation, normal bowel sounds : +left-sided CVA tenderness MSK: no gross deformities Skin: warm, dry, no rash appreciated Neuro: alert, oriented, no focal neurologic deficit appreciated Results & Data Results & Data Vital Signs (Past 12 Hours) Vital Signs Temp Pulse Pulse Resp BP BP Pulse Ox 12/09/24 15:00 69 120/76 96 12/09/24 13:27 66 20 126/80 99 12/09/24 12:29 71 12/09/24 12:00 63 16 135/79 99 12/09/24 10:36 78 17 95 12/09/24 10:36 79 17 118/73 95 12/09/24 10:01 36.4 C L 87 20 149/91 H 97 O2 Del Method 12/09/24 15:00 Room Air 12/09/24 13:27 Room Air 12/09/24 12:29 12/09/24 12:00 Room Air 12/09/24 10:36 Room Air 12/09/24 10:36 Room Air 12/09/24 10:01 Room Air PG Care Time/CCT Total # of Minutes Spent Total Time Spent with Patient: Total time spent is greater than 50% in coordination of care (as documented) at patient's floor/unit and/or counseling patient: Coding Diagnoses Pyelonephritis N12 HTN (hypertension) I10 Dysuria R30.0 Resident Activity Tracking Resident Involvement: Resident Care Provided Care Provided: Adult Hospital Medicine
[2024-12-09] MEDS: cefTRIAXone SODIUM 2,000 MG/50 ML BAG IV STA (16:22)
--- NOTE | 2024-12-10 12:58 | Coding Query ---
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 Please assist us with the question(s) below: Coding Question(s): Right sided weakness was documented on ER with, "He reports that she was complaining of right sided weakness" (referring to ), and on the H&P with, "Also w/ reports of right sided weakness". Right sided weakness is not documented past the H&P. Please specify below, in your clinical opinion: ( ) Right Sided Weakness ( ) NO Right Sided Weakness Physician's Response(s): Thank you Freya Rod Principal Diagnosis: "that condition established after study, to be chiefly responsible for occasioning the admission of the patient to the hospital for care." Co-Existing Principal Diagnosis: "when two or more diagnoses equally meet the criteria for principal diagnosis as determined by the circumstances of admission, diagnostic work up, and/or therapy provided, and the Alphabetic Index, Tabular List, or another coding guideline does not provide sequencing direction, any one of the diagnoses may be sequenced first." "When the physician has documented what appears to be a current diagnosis in the body of the record, but has not included the diagnosis in the final diagnostic statement, the physician should be asked whether the diagnosis should be added." (Source [facility]oding [facility] 2 QTR90. p3-4) [facility]
== END 2024-12-09 21:35 | disposition left against medical advice (07) | DRG 690 ==
LOC: SUATTDRO → ED 09:57 → 3W 19:23 → INTOOBSV 19:23 → 3W 20:32